=== PATIENT | male | born 1950 | race Caucasian/White ===

== ENCOUNTER 2020-11-12 14:16 | Inpatient (IN) | payer OTHER, MEDICARE ==
[2020-11-12] VITALS (9 sets, daily range): BP systolic 91–107; BP diastolic 50–58
[~2020-11-12] VITALS: Ht 188 cm; Wt 58.9 kg
--- NOTE | 2020-11-12 15:18 | PHYS DOC ---
Past Medical History Past Medical History: Cancer, Other Additional Past Medical Histor: "POSSIBLE CANCER" Past Surgical History: Cholecystectomy, Other Additional Past Surgical Histo: MULTIPLE ABDOMINAL SURGERIES Smoking Status: Never Smoker Alcohol Use: Occasionally Additional Information: BEER, 1 TO 2 A WEEK General Adult EDM: Chief Complaint: WEAKNESS HPI: HPI: Patient is a 70 year old male who was sent down here from the oncology clinic due to dehydration anemia and elevated white blood cell count. Patient is being worked up for some form of liver cancer, he had lost 20 pounds in 4 weeks. Patient was seen by the physician legal executive assistant in the cancer clinic today, blood work was done showed that his hemoglobin level was really low and his white blood cell count was really high therefore he was sent out here for evaluation. Patient denies any rectal bleeding, denies any dark stool. Patient denies any cough or fever. Patient did feel weak and getting tired easily. He is complaining of trouble breathing when he exerts himself. Review of Systems: Review of Systems: Constitutional: Denies fever or chills. [] Eyes: Denies change in visual acuity. [] HENT: Denies nasal congestion or sore throat. [] Respiratory: Denies cough , positive for shortness of breath. [] Cardiovascular: Denies chest pain or edema. [] GI: Denies abdominal pain, nausea, vomiting, bloody stools or diarrhea. [] : Denies dysuria. [] Musculoskeletal: Denies back pain or joint pain. [] Integument: Denies rash. [] Neurologic: Denies headache, focal weakness or sensory changes. Positive for generalized weakness. Endocrine: Denies polyuria or polydipsia. [] Lymphatic: Denies swollen glands. [] Psychiatric: Denies depression or anxiety. [] Heart Score: Risk Factors: Risk Factors: DM, Current or recent (<one month) smoker, HTN, HLP, family history of CAD, obesity. Risk Scores: Score 0 - 3: 2.5% MACE over next 6 weeks - Discharge Home Score 4 - 6: 20.3% MACE over next 6 weeks - Admit for Clinical Observation Score 7 - 10: 72.7% MACE over next 6 weeks - Early Invasive Strategies Current Medications: Current Medications Medications (Trade) Dose Ordered Sig/Ric Start Time Stop Time Status Last Admin Dose Admin Piperacillin Sod/ Tazobactam Sod 3.375 gm/Sodium Chloride 50 ml @ 100 mls/hr 1X ONCE 11/12/20 15:30 11/12/20 15:59 Allergies: Allergies: Allergies Coded Allergies Type Severity Reaction Last Updated Verified No Known Drug Allergies 11/12/20 No Physical Exam: PE: Constitutional: Well developed, well nourished, no acute distress, very cachectic. HENT: Normocephalic, atraumatic, bilateral external ears normal, oropharynx moist, no oral exudates, nose normal. [] Eyes: PERRLA, EOMI, conjunctiva is pale, no discharge. [] Neck: Normal range of motion, no tenderness, supple, no stridor. [] Cardiovascular:Heart rate regular rhythm, no murmur [] Lungs & Thorax: Bilateral breath sounds clear to auscultation [] Abdomen: Bowel sounds normal, soft, no tenderness, no masses, no pulsatile masses. [] Skin: Warm, dry, no erythema, no rash. [] Back: No tenderness, no CVA tenderness. [] Extremities: No tenderness, no cyanosis, no clubbing, ROM intact, no edema. [] Neurologic: Alert and oriented X 3, normal motor function, normal sensory function, no focal deficits noted. [] Psychologic: Affect normal, judgement normal, mood normal. [] Current Patient Data: Labs: Laboratory Tests Test 11/12/20 17:00 White Blood Count 27.0 x10^3/uL Red Blood Count 2.44 x10^6/uL Hemoglobin 5.7 g/dL Hematocrit 18.0 % Mean Corpuscular Volume 74 fL Mean Corpuscular Hemoglobin 23 pg Mean Corpuscular Hemoglobin Concent 32 g/dL Red Cell Distribution Width 20.5 % Platelet Count 329 x10^3/uL Sodium Level 124 mmol/L Potassium Level 3.2 mmol/L Chloride Level 92 mmol/L Carbon Dioxide Level 19 mmol/L Anion Gap 13 Blood Urea Nitrogen 59 mg/dL Creatinine 1.1 mg/dL Estimated GFR (Cockcroft-Gault) 66.0 Glucose Level 113 mg/dL Lactic Acid Level 1.1 mmol/L Calcium Level 7.7 mg/dL Troponin I Quantitative < 0.017 ng/mL Procalcitonin 11.90 ng/mL Current Medications Medications (Trade) Dose Ordered Sig/Ric Route PRN Reason Start Time Stop Time Status Last Admin Dose Admin Piperacillin Sod/ Tazobactam Sod 3.375 gm/Sodium Chloride 50 ml @ 100 mls/hr 1X ONCE IV 11/12/20 15:30 11/12/20 15:59 DC 11/12/20 15:24 Vital Signs: Vital Signs Date Time Temp Pulse Resp B/P (MAP) Pulse Ox O2 Delivery O2 Flow Rate FiO2 11/12/20 14:33 97.9 104 24 108/65 (79) 100 Room Air 97.9 EKG: EKG: [] Radiology/Procedures: Radiology/Procedures: [facility] [address] [place] [address] IMAGING REPORT Signed PATIENT: MISTY BETHOUNT: [id number] : 1950 LOCATION: ER AGE: 70 SEX: M EXAM STATUS: REG ER ORD. PHYSICIAN: JULI GIANG DO REASON: SOA, PROCEDURE: CHEST AP ONLY EXAM: CHEST 1 VIEW History: Shortness of breath COMPARISON: None available. TECHNIQUE: Single portable radiograph of the chest FINDINGS: The cardiac silhouette is unremarkable. Right-sided Port-A-Cath is identified. Mild prominent bilateral interstitial lung markings could be chronic interstitial changes. IMPRESSION: 1. Mild prominent bilateral interstitial lung markings could be chronic interstitial changes. Electronically signed by: Chele Floyd MD (11/12/2020 4:05 PM) [id number] DICTATED and SIGNED BY: CHELE FLOYD MD DATE: 11/12/20 [id number] 0 Course & Med Decision Making: Course & Med Decision Making Pertinent Labs and Imaging studies reviewed. (See chart for details) [] Dragon Disclaimer: Dragon Disclaimer: This electronic medical record was generated, in whole or in part, using a voice recognition dictation system. Departure Departure Impression: Primary Impression: Anemia Additional Impressions: Liver cancer Dehydration Leukocytosis Disposition: 09 ADMITTED INPT THIS HOSP Admitting Physician: ANTONINO Condition: STABLE Referrals: DIMA COLLIER MD (PCP) JULI GIANG DO Nov 12, 2020 15:17
[2020-11-12] MEDS ORDERED: PIPERACILLIN/TAZOBACTAM 3.375 GM in IV NORMAL SALINE 50ML 50 ML IV ONE (15:30)
--- NOTE | 2020-11-12 15:47 | PDOC1 ---
History and Physical Date of Admission Date of Admission DATE: 11/12/20 TIME: 15:46 Identification/Chief Complaint Chief Complaint weakness, severe anemia, 20lb weight loss IN 2 WEEKS, ANOREXIA History of Present Illness History of Present Illness Mr Castorena is a 70 yr old male with a history of hepatic cancer who has been followed by DR GARCIA, ONCOLOGY at [facility] Until recently. 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 [facility] records from are pending Past Medical History Past Medical History Past Medical History Past Medical History Past Medical History: Cancer, Other Additional Past Medical Histor: "POSSIBLE CANCER" Past Surgical History: Cholecystectomy, Other Additional Past Surgical Histo: MULTIPLE ABDOMINAL SURGERIES Smoking Status: Never Smoker Alcohol Use: Occasionally Additional Information: BEER, 1 TO 2 A WEEK FHX HTN Heme/Onc: Cancer Hepatobiliary: Cirrhosis Social History Smoke: No ALCOHOL: other (remote heavy use 6 pack a day until 2019) Current Problem List Problem List Problems Medical Problems: (1) Anemia Status: Acute (2) Dehydration Status: Acute (3) Leukocytosis Status: Acute (4) Liver cancer Status: Acute Current Medications Current Medications Current Medications Piperacillin Sod/ Tazobactam Sod 3.375 gm/Sodium Chloride 50 ml @ 100 mls/hr 1X ONCE IV Last administered on 11/12/20at 15:24; Start 11/12/20 at 15:30; Stop 11/12/20 at 15:59 Allergies Allergies: Coded Allergies: No Known Drug Allergies (Unverified , 11/12/20) ROS Review of System has lost 20 lbs in 2 weeks, approx 50 lbs in 1 year General: YES: Fatigue PSYCHOLOGICAL ROS: No: Anxiety, Behavioral Disorder, Concentration difficultie, Decreased libido, Depression, Disorientation, Hallucinations, Hostility, Irritablity, Memory difficulties, Mood Swings, Obsessive thoughts, Physical abuse, Sexual abuse, Sleep disturbances, Suicidal ideation, Other Eyes: No Blurry vision, No Decreased vision, No Double vision, No Dry eyes, No Excessive tearing, No Eye Pain, No Itchy Eyes, No Loss of vision, No Photophobia, No Scotomata, No Uses contacts, No Uses glasses, No Other Hematological and Lymphatic: No: Bleeding Problems, Blood Clots, Blood Transfusions, Brusing, Night Sweats, Pallor, Swollen Lymph Nodes, Other ENDOCRINE: No: Breast Changes, Galactorrhea, Hair Pattern Changes, Hot Flashes, Malaise/lethargy, Mood Swings, Palpitations, Polydipsia/polyuria, Skin Changes, Temperature Intolerance, Unexpected Weight Changes, Other Respiratory: No: Cough, Hemoptysis, Orthopnea, Pleuritic Pain, Shortness of breath, SOB with excertion, Sputum Changes, Stridor, Tachypnea, Wheezing, Other Cardiovascular: No Chest Pain, No Palpitations, No Orthopnea, No Paroxysmal Noc. Dyspnea, No Edema, No Lt Headedness, No Other Gastrointestinal: Yes Other (marked weight loss, poor appetite); No Nausea, No Vomiting, No Abdominal Pain, No Diarrhea, No Constipation, No Melena, No Hematochezia Genitourinary: No Dysuria, No Frequency, No Incontinence, No Hematuria, No Retention, No Discharge, No Urgency, No Pain, No Flank Pain, No Other, No , No , No , No , No , No , No Musculoskeletal: No Gait Disturbance, No Joint Pain, No Joint Stiffness, No Joint Swelling, No Muscle Pain, No Muscular Weakness, No Pain In:, No Swelling In:, No Other Neurological: No Behavorial Changes, No Bowel/Bladder ControlChng, No Confusion, No Dizziness, No Gait Disturbance, No Headaches, No Impaired Coord/balance, No Memory Loss, No Numbness/Tingling, No Seizures, No Speech Problems, No Tremors, No Visual Changes, No Weakness, No Other Skin: No Dry Skin, No Eczema, No Hair Changes, No Lumps, No Mole Changes, No Mottling, No Nail Changes, No Pruritus, No Rash, No Skin Lesion Changes, No Other, No Acne Physical Exam Physical Exam very thin, alert appears malnourished, port in place Eyes: PERRLA, EOMI, conjunctiva normal, no discharge. [] Neck: Normal range of motion, no tenderness, supple, no stridor. [] Cardiovascular:Heart rate regular rhythm, no murmur [] Lungs & Thorax: Bilateral breath sounds clear to auscultation [] Abdomen: Bowel sounds normal, soft, no tenderness, no masses, no pulsatile masses. [] Skin: Warm, dry, no erythema, no rash. [] Back: No tenderness, no CVA tenderness. [] Extremities: No tenderness, no cyanosis, no clubbing, ROM intact, no edema. [] Neurologic: Alert and oriented X 3, normal motor function, normal sensory function, no focal deficits noted. [] Psychologic: Affect normal, judgment normal, mood normal. [] General: Alert, Oriented X3, Cooperative, No acute distress HEENT: Atraumatic, EOMI, Mucous membr. moist/pink Lungs: Normal air movement Heart: RRR, no thrills Abdomen: Soft, Other (thin) Rectal Exam: not examined PELVIC: Examination not indicated Extremities: No clubbing, No cyanosis Neuro: Normal speech, Cranial nerves 3-12 NL Psych/Mental Status: Mental status NL, Mood NL Vitals Vitals Vital Signs Date Time Temp Pulse Resp B/P (MAP) Pulse Ox O2 Delivery O2 Flow Rate FiO2 11/12/20 14:33 97.9 104 24 108/65 (79) 100 Room Air 97.9 Images Images EXAM: CHEST 1 VIEW History: Shortness of breath COMPARISON: None available. TECHNIQUE: Single portable radiograph of the chest FINDINGS: The cardiac silhouette is unremarkable. Right-sided Port-A-Cath is identified. Mild prominent bilateral interstitial lung markings could be chronic interstitial changes. IMPRESSION: 1. Mild prominent bilateral interstitial lung markings could be chronic interstitial changes. Electronically signed by: Chele Floyd MD (11/12/2020 4:05 PM) [id number] DICTATED and SIGNED BY: CHELE FLOYD MD DATE: 11/12/20 [id number] VTE Prophylaxis Ordered VTE Prophylaxis Devices: Yes VTE Pharmacological Prophylaxi: Yes Assessment/Plan Assessment/Plan impression 1. Acute profound anemia, possible GI BLEEDING 2. severe hyponatremia, volume depleted 3. hx Hepatic cancer, type unknown 4. Mild prominent bilateral interstitial lung markings c/w chronic interstitial changes. 5. metabolic acidosis 6. NAEL, VASOMOTOR NEPHROPATHY, acute 7. HYPERGLYCEMIA 8. sepsis 9. LEUKOCYTOSIS 10. SEVERE PROTEIN-CALORIC MALNUTRITION plan admit transfuse, hgb 2300 tonight, BMP AT 2300 TONIGHT CONSULT ONCOLOGY Consult nephrology cvc bed CONSULT GI IV FLUID SUPPORT Serum osmolality urine osmolality dvt prophylaxis iv protonix 40 mg q 24 hrs blood cultures Consult ID emperic iv zosyn, pending ID CONSULT PROCALCITONIN LACTIC ACID WITH REFLEX NORMAL SALINE WITH ONE AMP NAHCO3/LITER AT 125 CC/HR PENDING nephrology consult GUIAC STOOLS need [facility] RECORDS TONNY 76 MIN pt exam, chart review, > 50% of time spent with exam, chart review, pt care coordination Justifications for Admission Other Justification VALDO JOHANSEN MD Nov 12, 2020 15:47
[2020-11-12] MEDS ORDERED: ONDANSETRON PF 4 MG/2 ML VIAL. IV PRN ×2 (16:00→17:15)
[2020-11-12] MEDS ORDERED: PIP/TAZO PER PHARMACY MC PRN (16:00)
--- NOTE | 2020-11-12 16:08 | RAD ---
EXAM: CHEST 1 VIEW History: Shortness of breath COMPARISON: None available. TECHNIQUE: Single portable radiograph of the chest FINDINGS: The cardiac silhouette is unremarkable. Right-sided Port-A-Cath is identified. Mild promin ent bilateral interstitial lung markings could be chronic interstitial changes. IMPRESSION: 1. Mild prominent bilateral interstitial lung markings could be chronic interstitial changes. Electronically signed by: Chele Floyd MD (11/12/2020 4:05 PM) [id number]
[2020-11-12] MEDS: IV NORMAL SALINE 1000ML BAG 1,000 ML IV SCH (16:38)
[2020-11-12] MEDS ORDERED: PANTOPRAZOLE IV PUSH 40 MG VIAL. IVP SCH (17:00)
[2020-11-12] MEDS ORDERED: 0.9 % SODIUM CHLORIDE 10 ML DISP.SYRIN. IV PRN (17:15)
[2020-11-12] MEDS ORDERED: DOCUSATE SODIUM 100 MG CAPSULE. PO PRN (17:15)
[2020-11-12] MEDS ORDERED: ACETAMINOPHEN 325 MG TABLET. PO PRN (17:15)
[2020-11-12] MEDS ORDERED: guaiFENesin ORAL 200 MG/10 ML LIQUID. PO PRN (17:15)
[2020-11-12] MEDS ORDERED: LORazepam 0.5 MG TABLET PO PRN (17:15)
[2020-11-12] MEDS ORDERED: ALBUTEROL SULFATE 2.5 MG/3 ML NEBU. NEB PRN (17:15)
[2020-11-12 17:30] LABS: RED BLOOD COUNT 2.44 x10^6/uL (4.30-5.70); RED CELL DISTRIBUTION WIDTH 20.5 % (11.5-14.5)
[2020-11-12 17:38] LABS: HEMOGLOBIN 5.7 g/dL (13.0-17.5)
[2020-11-12 17:45] LABS: CALCIUM 7.7 mg/dL (8.5-10.1); CREATININE 1.1 mg/dL (0.7-1.3); POTASSIUM 3.2 mmol/L (3.5-5.1)
[2020-11-12] MEDS ORDERED: PIPERACILLIN/TAZOBACTAM 3.375 GM in IV NORMAL SALINE 50ML 50 ML IV SCH (18:00)
--- NOTE | 2020-11-12 18:27 | RAD ---
US ABDOMEN COMPLETE History: Reason: NAEL; HX OF LIVER CANCER, ELEVATED LFTS / Spl. Instructions: / History: Comparison: None. Technique: Sonographic examination of the abdomen was performed and multiple grayscale and color Dopp ler static images were obtained. Findings: Liver demonstrates heterogeneous echogenicity. The liver measures 17.7 cm. Portal flow is patent. Sep tated cystic lesion within the right hepatic lobe poorly characterized due to technique. Prior cholecystectomy. Common bile duct not identified due to overlying structures. Visualized pancreas not well seen due to overlying bowel gas. The right kidney measures 11.5 x 6.1 x 4.3 cm. No hydronephrosis. Right renal cyst measures 4.0 cm. N o follow-up imaging is recommended per consensus recommendations based on imaging criteria. The left kidney measures 10.9 x 5.0 x 6.0 cm. No hydronephrosis. The spleen measures 10.8 cm. Not well seen due to overlying structures. Visualized portions of the abdominal aorta and IVC are normal. IMPRESSION: 1. Degraded evaluation. 2. Heterogeneous appearance of liver with complex cystic lesion. Recommend comparison with prior [place] ging studies. MRI can further evaluate given history of malignancy. Electronically signed by: Mike Mccullough DO (11/12/2020 6:24 PM) [facility]
[2020-11-12] MEDS: SODIUM BICARBONATE VIAL 50 MEQ in IV NORMAL SALINE 1000ML BAG 1,000 ML IV SCH (18:31)
--- NOTE | 2020-11-12 22:30 | NUR ---
The patient, MISTY BETH, 70 y/o, M admitted by VALDO JOHANSEN MD, was given written information regarding hospital policies, unit procedures and contact persons. Assessment complete, VS stable. Patient reports no pain at this time and is resting comfortably on RA. Patient states that he does not take any medications at home and states that he has never gotten a flu shot and does not want one. Valuables were checked and left with patient. Bed in low locked position, call light in reach, reminded patient to call for assistance before ambulating. Will continue to monitor.
[2020-11-12] MEDS: ENOXAPARIN 40 MG/0.4 ML SYRINGE. SQ SCH (23:43)
[2020-11-12] MEDS: PIPERACILLIN/TAZOBACTAM 3.375 GM in IV NORMAL SALINE 50ML 50 ML IV SCH (23:44)
[2020-11-13] VITALS (10 sets, daily range): BP systolic 90–105; BP diastolic 51–59
[2020-11-13 00:28] LABS: RED BLOOD COUNT 2.59 x10^6/uL (4.30-5.70); RED CELL DISTRIBUTION WIDTH 19.6 % (11.5-14.5); WHITE BLOOD COUNT 15.6 x10^3/uL (4.0-11.0)
[2020-11-13 00:30] LABS: CALCIUM 7.7 mg/dL (8.5-10.1); GFR 73.7
[2020-11-13 00:33] LABS: HEMATOCRIT 19.7 % (39.0-53.0); HEMOGLOBIN 6.2 g/dL (13.0-17.5)
[2020-11-13 00:34] LABS: POTASSIUM 2.9 mmol/L (3.5-5.1)
[2020-11-13] MEDS: POTASSIUM CHLORIDE 10MEQ 100 ML IV SCH ×3 (01:04→03:02)
[2020-11-13] MEDS: PIPERACILLIN/TAZOBACTAM 3.375 GM in IV NORMAL SALINE 50ML 50 ML IV SCH ×3 (05:56→17:55)
[2020-11-13] MEDS: SODIUM BICARBONATE VIAL 50 MEQ in IV NORMAL SALINE 1000ML BAG 1,000 ML IV SCH (06:09)
[2020-11-13 08:27] LABS: BASO % 0 % (0-3); EOS % 0 % (0-3); HEMATOCRIT 22.4 % (39.0-53.0); HEMOGLOBIN 7.3 g/dL (13.0-17.5); LYMPH # 0.7 x10^3/uL (1.0-4.8); LYMPH % 7 % (24-48); MEAN CORPUSCULAR HEMOGLOBIN 25 pg (25-35); MEAN CORPUSCULAR HGB CONC 32 g/dL (31-37); MEAN CORPUSCULAR VOLUME 77 fL (79-100); MONO % 9 % (0-9); NEUT % 84 % (31-73); PLATELET COUNT 267 x10^3/uL (140-400); RED BLOOD COUNT 2.91 x10^6/uL (4.30-5.70); RED CELL DISTRIBUTION WIDTH 18.9 % (11.5-14.5); WHITE BLOOD COUNT 10.7 x10^3/uL (4.0-11.0)
[2020-11-13 08:35] LABS: CALCIUM 7.7 mg/dL (8.5-10.1); CREATININE 0.7 mg/dL (0.7-1.3); GFR 111.2; POTASSIUM 3.6 mmol/L (3.5-5.1)
[2020-11-13 08:42] LABS: ALBUMIN 1.7 g/dL (3.4-5.0); ALBUMIN/GLOBULIN RATIO 0.4 (1.0-1.7); TOTAL BILIRUBIN 1.3 mg/dL (0.2-1.0); TOTAL PROTEIN 5.7 g/dL (6.4-8.2)
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
--- NOTE | 2020-11-13 10:22 | PDOC ---
[employer] PROGRESS NOTE Date of Service DOS: DATE: 11/13/20 TIME: 10:19 Chief Complaint Chief Complaint 11/13/2020 -Possible Liver neoplasm -Anemia History of Present Illness History of Present Illness 11/13/2020 -Patient seen and examined -RANI RN -Chart reviewed Vitals/I&O Vitals/I&O: Vital Signs Date Time Temp Pulse Resp B/P (MAP) Pulse Ox O2 Delivery O2 Flow Rate FiO2 11/13/20 07:00 97.7 58 18 90/58 (69) 94 Room Air 97.7 I & O 11/12/20 11/12/20 11/13/20 15:00 23:00 07:00 Intake Total 550 ml 450 ml Output Total 325 ml Balance 550 ml 125 ml Physical Exam General: Alert, Oriented X3, Cooperative, No acute distress Heart: Regular rate, No murmurs Lungs: Clear Abdomen: Normal bowel sounds, Soft, Other (thin) Extremities: No clubbing, No cyanosis Skin: No breakdown, No significant lesion Labs Labs: Laboratory Tests Test 11/12/20 17:00 11/13/20 00:05 11/13/20 08:00 White Blood Count 27.0 x10^3/uL (4.0-11.0) 15.6 x10^3/uL (4.0-11.0) 10.7 x10^3/uL (4.0-11.0) Red Blood Count 2.44 x10^6/uL (4.30-5.70) 2.59 x10^6/uL (4.30-5.70) 2.91 x10^6/uL (4.30-5.70) Hemoglobin 5.7 g/dL (13.0-17.5) 6.2 g/dL (13.0-17.5) 7.3 g/dL (13.0-17.5) Hematocrit 18.0 % (39.0-53.0) 19.7 % (39.0-53.0) 22.4 % (39.0-53.0) Mean Corpuscular Volume 74 fL (79-100) 76 fL (79-100) 77 fL (79-100) Mean Corpuscular Hemoglobin 23 pg (25-35) 24 pg (25-35) 25 pg (25-35) Mean Corpuscular Hemoglobin Concent 32 g/dL (31-37) 31 g/dL (31-37) 32 g/dL (31-37) Red Cell Distribution Width 20.5 % (11.5-14.5) 19.6 % (11.5-14.5) 18.9 % (11.5-14.5) Platelet Count 329 x10^3/uL (140-400) 268 x10^3/uL (140-400) 267 x10^3/uL (140-400) Sodium Level 124 mmol/L (136-145) 126 mmol/L (136-145) 130 mmol/L (136-145) Potassium Level 3.2 mmol/L (3.5-5.1) 2.9 mmol/L (3.5-5.1) 3.6 mmol/L (3.5-5.1) Chloride Level 92 mmol/L (98-107) 97 mmol/L (98-107) 100 mmol/L (98-107) Carbon Dioxide Level 19 mmol/L (21-32) 21 mmol/L (21-32) 23 mmol/L (21-32) Anion Gap 13 (6-14) 8 (6-14) 7 (6-14) Blood Urea Nitrogen 59 mg/dL (8-26) 42 mg/dL (8-26) 31 mg/dL (8-26) Creatinine 1.1 mg/dL (0.7-1.3) 1.0 mg/dL (0.7-1.3) 0.7 mg/dL (0.7-1.3) Estimated GFR (Cockcroft-Gault) 66.0 73.7 111.2 Glucose Level 113 mg/dL (70-99) 115 mg/dL (70-99) 92 mg/dL (70-99) Lactic Acid Level 1.1 mmol/L (0.4-2.0) Calcium Level 7.7 mg/dL (8.5-10.1) 7.7 mg/dL (8.5-10.1) 7.7 mg/dL (8.5-10.1) Troponin I Quantitative < 0.017 ng/mL (0.000-0.055) Procalcitonin 11.90 ng/mL (0.00-0.10) Neutrophils (%) (Auto) 84 % (31-73) Lymphocytes (%) (Auto) 7 % (24-48) Monocytes (%) (Auto) 9 % (0-9) Eosinophils (%) (Auto) 0 % (0-3) Basophils (%) (Auto) 0 % (0-3) Neutrophils # (Auto) 9.0 x10^3/uL (1.8-7.7) Lymphocytes # (Auto) 0.7 x10^3/uL (1.0-4.8) Monocytes # (Auto) 1.0 x10^3/uL (0.0-1.1) Eosinophils # (Auto) 0.0 x10^3/uL (0.0-0.7) Basophils # (Auto) 0.0 x10^3/uL (0.0-0.2) BUN/Creatinine Ratio 44 (6-20) Total Bilirubin 1.3 mg/dL (0.2-1.0) Aspartate Amino Transf (AST/SGOT) 34 U/L (15-37) Alanine Aminotransferase (ALT/SGPT) 20 U/L (16-63) Alkaline Phosphatase 100 U/L (46-116) Total Protein 5.7 g/dL (6.4-8.2) Albumin 1.7 g/dL (3.4-5.0) Albumin/Globulin Ratio 0.4 (1.0-1.7) Review of Systems Review of Systems: 11/13/2020 -Pectus excavatum, denies N/V Assessment and Plan Assessmemt and Plan Problems Medical Problems: (1) Anemia Status: Acute (2) Dehydration Status: Acute (3) Leukocytosis Status: Acute (4) Liver cancer Status: Acute 11/13/2020 A: -Anemia -Liver lesion, questionable neoplasm P: -Appreciate oncology sub-specialist input -Cardiac monitoring -Trend hgb -DVT prophylaxis -Home meds -Full code Comment Review of Relevant I have reviewed the following items trini (where applicable) has been applied. Medications: Current Medications Medications (Trade) Dose Ordered Sig/Ric Route PRN Reason Start Time Stop Time Status Last Admin Dose Admin Piperacillin Sod/ Tazobactam Sod 3.375 gm/Sodium Chloride 50 ml @ 100 mls/hr 1X ONCE IV 11/12/20 15:30 11/12/20 15:59 DC 11/12/20 15:24 Sodium Chloride 1,000 ml @ 75 mls/hr [id number] IV 11/12/20 16:00 11/13/20 15:59 11/12/20 16:38 Piperacillin Sod/ Tazobactam Sod 3.375 gm/Sodium Chloride 50 ml @ 100 mls/hr Q6HRS IV 11/13/20 00:00 11/13/20 05:56 Pantoprazole Sodium (PROTONIX VIAL for IV PUSH) 40 mg DAILYAC IVP 11/12/20 17:00 11/12/20 17:48 Sodium Bicarbonate 50 meq/Sodium Chloride 1,050 ml @ 125 mls/hr Q8H24M IV 11/12/20 18:00 11/13/20 10:47 11/13/20 06:09 Enoxaparin Sodium (Lovenox 40mg Syringe) 40 mg Q24H SQ 11/12/20 21:00 11/12/20 23:43 Potassium Chloride/Water 100 ml @ 100 mls/hr Q1H IV 11/13/20 01:00 11/13/20 03:59 DC 11/13/20 03:02 Justifications for Admission General Conditions Poss tachycardia?: Yes Justification for admission: Patient has tachycardia (> 100 beats per minute) which is not readily corrected by appropriate treatment within 12 to 24 hours. SEPSIS, PROFOUND ANEMIA, GI BLEED Other Justification EHSAN GARCIA III DO Nov 13, 2020 10:22
[2020-11-13] MEDS: PANTOPRAZOLE 40 MG TABLET.DR. PO SCH (11:07)
--- NOTE | 2020-11-13 12:23 | CONS ---
DATE OF CONSULTATION: 11/12/2020 REFERRING PHYSICIAN: Dr. Cheung. REASON FOR CONSULTATION: Sepsis. HISTORY OF PRESENT ILLNESS: A 70-year-old male with a liver/biliary cancer extensively worked up at [facility], recently transferred his care to [facility] here. The patient underwent Port-A-Cath placement about a month ago, but then he felt it would be a bad idea to start chemo during the flu season. The patient was sent for outpatient lab yesterday, which showed severe anemia, hyponatremia and NAEL along with leukocytosis. He was told to come to the ER for transfusion and admission. Blood culture from 11/12/2020 from [facility] [place] grew GPC strep like organism. The patient was started on Zosyn. Today patient denies any fevers, chills, nausea, vomiting, diarrhea, abdominal pain. Does have poor teeth. He is awaiting dental workup for the same. The patient has undergone Multiple duodenal biopsies about 12-14 for workup of liver mass in the past. He had a postoperative fungal infection for which he underwent local I&D . He then self treated it with essential oils and salves, which healed it well. The patient has a 20-pound weight loss in the last 4 weeks with decreased appetite. WBC on 11/12/2020 was 27,000, hemoglobin of 5.7, platelets of 326, repeat was 15.6, hemoglobin of 6.2. This morning, his white count is down to 10.7, hemoglobin of 7.3 and platelets of 267. He received 3 packed unit RBC transfusion. The patient also had sodium at 124, potassium was 3.2, went down to 2.9, bicarbonate of 19. Lactate was 1.1. Troponin was normal. Procalcitonin was 11.90, albumin of 1.7, total bilirubin of 1.3. Chest x-ray showed mild prominent bilateral interstitial lung markings, which could be chronic interstitial changes. Ultrasound of the liver showed a heterogeneous appearance of the liver with complex cystic lesion. ID consultation has been requested for antibiotic management. PAST MEDICAL AND SURGICAL HISTORY: Liver/ biliary cancer, status post surgeries, embolization, exploratory laparotomy, cholecystectomy, multiple duodenal and liver biopsies. Port-A-Cath placement, left wrist and right forearm fracture as a child. FAMILY HISTORY: As per HPI. SOCIAL HISTORY: No smoking. Alcohol heavy in the past up to 6-8 beers a day now has cut back to 6 beers a week. 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 . Has one child who is 14 years old. Has a daughter who is 35 years old, also has a grandchild 9 months old. CURRENT MEDICATIONS: Zosyn, pantoprazole, enoxaparin, lorazepam, guaifenesin, albuterol, docusate, acetaminophen, and Zofran. ALLERGIES: No known drug allergies. REVIEW OF SYSTEMS: Negative except for above in HPI. PHYSICAL EXAMINATION: VITAL SIGNS: Temperature 97.7, pulse 58, respiratory rate 18, blood pressure 90/58, oxygen saturation 94% on room air. GENERAL: Alert, oriented, thin, malnourished male in no acute distress. HEENT: Normocephalic, atraumatic. Poor dentition. No thrush. NECK: Supple, no JVD, no lymphadenopathy. LUNGS: Clear bilaterally. No wheezing. HEART: S1, S2. No gallops or murmurs. ABDOMEN: Soft. Mass felt in the epigastric and right upper quadrant. No pulsatile mass noted. Bowel sounds present. No guarding, no rigidity. Chest wall Port-A-Cath site, right chest wall, looks clean. EXTREMITIES: No edema, no cyanosis. DERMATOLOGIC: Warm and dry. No generalized rash. NEUROLOGIC: Alert and oriented x 3, grossly nonfocal. PSYCHIATRIC: Cooperative, appropriate mood and affect. LABORATORY DATA:\ On admission WBC 27, hemoglobin 7.3, was 5.7, hematocrit 22.4, platelets 267. Sodium 130, potassium 3.6, chloride 100, bicarbonate 23, BUN 31, creatinine 0.7, glucose 92, total bilirubin 1.3, albumin 1.7. MICROBIOLOGY: On 11/12/2020, 2/2 bottles Gram-positive cocci in chains suggestive of strep. IMAGING: Chest x-ray as above. Ultrasound of the abdomen as above. IMPRESSION: 1. Sepsis. 2. Gram-positive cocci bacteremia, source appears GI. 3. Severe anemia, status post 3 units of packed RBC. 4. Leukocytosis, likely reactive. Improved 5. Hyponatremia and hypokalemia. 6. History of biliary neoplasm with extensive workup and surgery at and [facility]. 7. Port-A-Cath placement, right chest wall. Site appears clean 8. Weight loss of 20 pounds in the last 4 weeks. 9. Protein-calorie malnutrition. RECOMMENDATIONS: 1. Continue Zosyn. 2. Start daptomycin, pending final ID and JOSE of GPC in blood cultures. 3. Repeat blood cultures from Port-A-Cath and periphery. 4. Monitor labs 5. Continue supportive care. Discussed with nursing staff Thank you for allowing me to participate in this patient's care. If you have any questions, do not hesitate to contact me. DEANNA LYNCH MD DR: MONY/angelo JOB#: [id number] / [id number] CRISTY
--- NOTE | 2020-11-13 12:48 | PDOC2 ---
CONSULT Date of Consult Date of Consult DATE: 11/13/20 TIME: 12:39 Reason for Consult Reason for Consult: LOW NA Referring Physician Referring Physician: ELENO Identification/Chief Complaint Chief Complaint ABNORMAL LABS Source Source: Chart review, Patient History of Present Illness Reason for Visit: THIS IS A 70 YR OLD WITH HX OF BILIARY CANCER. [facility] SE[facility] AT [facility] AND NOW SEEING ONC HERE. OUTPT LABS SHOWED SEVERE ANEMIA AND LOW NA AND PT WAS ADMITTED. PRBC BEING GIVEN NOW. NA OF 124 AND K OF 2.8. ALSO NOTED TO HAVE HIGH WBC AND CURRENTLY FELT TO HAVE SEPSIS. HAS A RIGHT CHEST WALL PORT. IS BEING SEEN BY ID NOW. HAS LIVER MASSES. PER PT HE HAS HAD AMEBIASIS AND HAS HAD INTERMITTENT DIARRHEA WELL. HE HAS NOT RECEIVED ANY CHEMOTHERAPY HE IS CONCERNED ABOUT HIS IMMUNE SYSTEM DURING THIS PANDEMIC. Past Medical History Heme/Onc: Cancer Hepatobiliary: Cirrhosis Social History No ALCOHOL: other (heavy in the past, now abotu 6 beers a week - usually a beer a day - most 2-3 daily) Current Problem List Problem List Problems Medical Problems: (1) Anemia Status: Acute (2) Dehydration Status: Acute (3) Leukocytosis Status: Acute (4) Liver cancer Status: Acute Current Medications Current Medications Current Medications Piperacillin Sod/ Tazobactam Sod 3.375 gm/Sodium Chloride 50 ml @ 100 mls/hr 1X ONCE IV Last administered on 11/12/20at 15:24; Start 11/12/20 at 15:30; Stop 11/12/20 at 15:59; Status DC Ondansetron HCl (Zofran) 4 mg PRN Q8HRS PRN IV NAUSEA/VOMITING; Start 11/12/20 at 16:00; Stop 11/13/20 at 15:59 Sodium Chloride 1,000 ml @ 75 mls/hr [id number] IV Last administered on 11/12/20at 16:38; Start 11/12/20 at 16:00; Stop 11/13/20 at 15:59 Piperacillin Sod/ Tazobactam Sod (Zosyn Per Pharmacy) 1 each PRN DAILY PRN MC SEE COMMENTS; Start 11/12/20 at 16:00 Piperacillin Sod/ Tazobactam Sod 3.375 gm/Sodium Chloride 50 ml @ 100 mls/hr Q6HRS IV Last administered on 11/13/20at 11:38; Start 11/13/20 at 00:00 Pantoprazole Sodium (PROTONIX VIAL for IV PUSH) 40 mg DAILYAC IVP Last administered on 11/12/20at 17:48; Start 11/12/20 at 17:00; Stop 11/13/20 at 10:43; Status DC Sodium Bicarbonate 50 meq/Sodium Chloride 1,050 ml @ 125 mls/hr Q8H24M IV Last administered on 11/13/20at 06:09; Start 11/12/20 at 18:00; Stop 11/13/20 at 10:47; Status DC Sodium Chloride (Normal Saline Flush) 3 ml QSHIFT PRN IV AFTER MEDS AND BLOOD DRAWS; Start 11/12/20 at 17:15 Ondansetron HCl (Zofran) 4 mg PRN Q4HRS PRN IV NAUSEA/VOMITING; Start 11/12/20 at 17:15 Acetaminophen (Tylenol) 650 mg PRN Q4HRS PRN PO TEMP OVER 100.4F OR MILD PAIN; Start 11/12/20 at 17:15 Docusate Sodium (Colace) 100 mg PRN BID PRN PO HARD STOOLS; Start 11/12/20 at 17:15 Albuterol Sulfate (Ventolin Neb Soln) 2.5 mg PRN Q4HRS PRN NEB SHORTNESS OF BREATH; Start 11/12/20 at 17:15 Guaifenesin (Robitussin) 200 mg PRN Q4HRS PRN PO COUGH; Start 11/12/20 at 17:15 Lorazepam (Ativan) 0.5 mg PRN Q4HRS PRN PO ANXIETY / AGITATION; Start 11/12/20 at 17:15 Lorazepam (Ativan Inj) 2 mg PRN Q4HRS PRN IV ANXIETY / AGITATION; Start 11/12/20 at 17:15 Enoxaparin Sodium (Lovenox 40mg Syringe) 40 mg Q24H SQ Last administered on 11/12/20at 23:43; Start 11/12/20 at 21:00 Piperacillin Sod/ Tazobactam Sod 3.375 gm/Sodium Chloride 50 ml @ 100 mls/hr Q6HRS IV ; Start 11/12/20 at 18:00; Status UNV Potassium Chloride/Water 100 ml @ 100 mls/hr Q1H IV Last administered on 11/13/20at 03:02; Start 11/13/20 at 01:00; Stop 11/13/20 at 03:59; Status DC Pantoprazole Sodium (Protonix) 40 mg DAILYAC PO Last administered on 11/13/20at 11:07; Start 11/13/20 at 11:30 Daptomycin 340 mg/ Sodium Chloride 50 ml @ 100 mls/hr Q24H IV ; Start 11/13/20 at 12:00 Allergies Allergies: Coded Allergies: No Known Drug Allergies (Unverified , 11/12/20) ROS General: YES: Fatigue, Malaise PSYCHOLOGICAL ROS: YES: Anxiety, Depression Eyes: Yes Decreased vision Gastrointestinal: Yes Diarrhea Genitourinary: YES Other (NOCTURIA) Musculoskeletal: Yes Muscular Weakness Neurological: Yes Weakness Skin: Yes Dry Skin Physical Exam General: Alert, Oriented X3, Cooperative, No acute distress HEENT: Atraumatic Lungs: Clear to auscultation Heart: Regular rate Abdomen: Normal bowel sounds Extremities: No clubbing Skin: No breakdown Neuro: Normal speech Psych/Mental Status: Mood NL MUSCULOSKELETAL: No deformity, No swelling Vitals VITALS Vital Signs Date Time Temp Pulse Resp B/P (MAP) Pulse Ox O2 Delivery O2 Flow Rate FiO2 11/13/20 11:00 98.7 72 18 97/58 (71) 100 Room Air 98.7 Labs Labs Laboratory Tests Test 11/12/20 17:00 11/13/20 00:05 11/13/20 08:00 White Blood Count 27.0 x10^3/uL (4.0-11.0) 15.6 x10^3/uL (4.0-11.0) 10.7 x10^3/uL (4.0-11.0) Red Blood Count 2.44 x10^6/uL (4.30-5.70) 2.59 x10^6/uL (4.30-5.70) 2.91 x10^6/uL (4.30-5.70) Hemoglobin 5.7 g/dL (13.0-17.5) 6.2 g/dL (13.0-17.5) 7.3 g/dL (13.0-17.5) Hematocrit 18.0 % (39.0-53.0) 19.7 % (39.0-53.0) 22.4 % (39.0-53.0) Mean Corpuscular Volume 74 fL (79-100) 76 fL (79-100) 77 fL (79-100) Mean Corpuscular Hemoglobin 23 pg (25-35) 24 pg (25-35) 25 pg (25-35) Mean Corpuscular Hemoglobin Concent 32 g/dL (31-37) 31 g/dL (31-37) 32 g/dL (31-37) Red Cell Distribution Width 20.5 % (11.5-14.5) 19.6 % (11.5-14.5) 18.9 % (11.5-14.5) Platelet Count 329 x10^3/uL (140-400) 268 x10^3/uL (140-400) 267 x10^3/uL (140-400) Sodium Level 124 mmol/L (136-145) 126 mmol/L (136-145) 130 mmol/L (136-145) Potassium Level 3.2 mmol/L (3.5-5.1) 2.9 mmol/L (3.5-5.1) 3.6 mmol/L (3.5-5.1) Chloride Level 92 mmol/L (98-107) 97 mmol/L (98-107) 100 mmol/L (98-107) Carbon Dioxide Level 19 mmol/L (21-32) 21 mmol/L (21-32) 23 mmol/L (21-32) Anion Gap 13 (6-14) 8 (6-14) 7 (6-14) Blood Urea Nitrogen 59 mg/dL (8-26) 42 mg/dL (8-26) 31 mg/dL (8-26) Creatinine 1.1 mg/dL (0.7-1.3) 1.0 mg/dL (0.7-1.3) 0.7 mg/dL (0.7-1.3) Estimated GFR (Cockcroft-Gault) 66.0 73.7 111.2 Glucose Level 113 mg/dL (70-99) 115 mg/dL (70-99) 92 mg/dL (70-99) Lactic Acid Level 1.1 mmol/L (0.4-2.0) Calcium Level 7.7 mg/dL (8.5-10.1) 7.7 mg/dL (8.5-10.1) 7.7 mg/dL (8.5-10.1) Troponin I Quantitative < 0.017 ng/mL (0.000-0.055) Procalcitonin 11.90 ng/mL (0.00-0.10) Neutrophils (%) (Auto) 84 % (31-73) Lymphocytes (%) (Auto) 7 % (24-48) Monocytes (%) (Auto) 9 % (0-9) Eosinophils (%) (Auto) 0 % (0-3) Basophils (%) (Auto) 0 % (0-3) Neutrophils # (Auto) 9.0 x10^3/uL (1.8-7.7) Lymphocytes # (Auto) 0.7 x10^3/uL (1.0-4.8) Monocytes # (Auto) 1.0 x10^3/uL (0.0-1.1) Eosinophils # (Auto) 0.0 x10^3/uL (0.0-0.7) Basophils # (Auto) 0.0 x10^3/uL (0.0-0.2) BUN/Creatinine Ratio 44 (6-20) Total Bilirubin 1.3 mg/dL (0.2-1.0) Aspartate Amino Transf (AST/SGOT) 34 U/L (15-37) Alanine Aminotransferase (ALT/SGPT) 20 U/L (16-63) Alkaline Phosphatase 100 U/L (46-116) Total Protein 5.7 g/dL (6.4-8.2) Albumin 1.7 g/dL (3.4-5.0) Albumin/Globulin Ratio 0.4 (1.0-1.7) Laboratory Tests Test 11/12/20 17:00 11/13/20 00:05 11/13/20 08:00 White Blood Count 27.0 x10^3/uL (4.0-11.0) 15.6 x10^3/uL (4.0-11.0) 10.7 x10^3/uL (4.0-11.0) Red Blood Count 2.44 x10^6/uL (4.30-5.70) 2.59 x10^6/uL (4.30-5.70) 2.91 x10^6/uL (4.30-5.70) Hemoglobin 5.7 g/dL (13.0-17.5) 6.2 g/dL (13.0-17.5) 7.3 g/dL (13.0-17.5) Hematocrit 18.0 % (39.0-53.0) 19.7 % (39.0-53.0) 22.4 % (39.0-53.0) Mean Corpuscular Volume 74 fL (79-100) 76 fL (79-100) 77 fL (79-100) Mean Corpuscular Hemoglobin 23 pg (25-35) 24 pg (25-35) 25 pg (25-35) Mean Corpuscular Hemoglobin Concent 32 g/dL (31-37) 31 g/dL (31-37) 32 g/dL (31-37) Red Cell Distribution Width 20.5 % (11.5-14.5) 19.6 % (11.5-14.5) 18.9 % (11.5-14.5) Platelet Count 329 x10^3/uL (140-400) 268 x10^3/uL (140-400) 267 x10^3/uL (140-400) Sodium Level 124 mmol/L (136-145) 126 mmol/L (136-145) 130 mmol/L (136-145) Potassium Level 3.2 mmol/L (3.5-5.1) 2.9 mmol/L (3.5-5.1) 3.6 mmol/L (3.5-5.1) Chloride Level 92 mmol/L (98-107) 97 mmol/L (98-107) 100 mmol/L (98-107) Carbon Dioxide Level 19 mmol/L (21-32) 21 mmol/L (21-32) 23 mmol/L (21-32) Anion Gap 13 (6-14) 8 (6-14) 7 (6-14) Blood Urea Nitrogen 59 mg/dL (8-26) 42 mg/dL (8-26) 31 mg/dL (8-26) Creatinine 1.1 mg/dL (0.7-1.3) 1.0 mg/dL (0.7-1.3) 0.7 mg/dL (0.7-1.3) Estimated GFR (Cockcroft-Gault) 66.0 73.7 111.2 Glucose Level 113 mg/dL (70-99) 115 mg/dL (70-99) 92 mg/dL (70-99) Lactic Acid Level 1.1 mmol/L (0.4-2.0) Calcium Level 7.7 mg/dL (8.5-10.1) 7.7 mg/dL (8.5-10.1) 7.7 mg/dL (8.5-10.1) Troponin I Quantitative < 0.017 ng/mL (0.000-0.055) Procalcitonin 11.90 ng/mL (0.00-0.10) Neutrophils (%) (Auto) 84 % (31-73) Lymphocytes (%) (Auto) 7 % (24-48) Monocytes (%) (Auto) 9 % (0-9) Eosinophils (%) (Auto) 0 % (0-3) Basophils (%) (Auto) 0 % (0-3) Neutrophils # (Auto) 9.0 x10^3/uL (1.8-7.7) Lymphocytes # (Auto) 0.7 x10^3/uL (1.0-4.8) Monocytes # (Auto) 1.0 x10^3/uL (0.0-1.1) Eosinophils # (Auto) 0.0 x10^3/uL (0.0-0.7) Basophils # (Auto) 0.0 x10^3/uL (0.0-0.2) BUN/Creatinine Ratio 44 (6-20) Total Bilirubin 1.3 mg/dL (0.2-1.0) Aspartate Amino Transf (AST/SGOT) 34 U/L (15-37) Alanine Aminotransferase (ALT/SGPT) 20 U/L (16-63) Alkaline Phosphatase 100 U/L (46-116) Total Protein 5.7 g/dL (6.4-8.2) Albumin 1.7 g/dL (3.4-5.0) Albumin/Globulin Ratio 0.4 (1.0-1.7) Assessment/Plan Assessment/Plan IMP HYPONATREMIA-POSSIBLE SIADH VS HYPOVOLEMIA HYPOKALEMIA SEPSIS LEUCOCYTOSIS BILIARY CANCER LIVER CYST ?AMEBIASIS DIARRHEA PLAN ANTBIOTICS ID EVAL AND TX REPLACE K SALINE CHECK URINE AND SERUM OSMO CHECK URINE LYTES K SUPPLEMENTS ARIANA SOLIS MD Nov 13, 2020 12:48
--- NOTE | 2020-11-13 12:57 | PDOC2 ---
CONSULT Date of Consult Date of Consult DATE: 11/13/20 TIME: 12:54 Reason for Consult Reason for Consult: Anemia, liver cancer Referring Physician Referring Physician: Dr. Cheung Identification/Chief Complaint Chief Complaint Anemia Source Source: Chart review, Patient History of Present Illness Reason for Visit: Randolph Castorena is a 70-year-old male with low-grade intraductal papillary biliary neoplasm, oncocytic type, of the liver. Randolph was initially diagnosed in April 2019 after a mass was noted on MRI abdomen. He received bland embolization to the left hepatic mass in May 2019. He also received a repeat biopsy in June 2020 which showed papillary oncocytic neoplasm with surface ulceration/erosion, with similar morphology to the patient's previous biopsies. Focal areas suspicious for invasion (adenocarcinoma) were noted. In addition, rare cells present within the ulcer debris concerning for entamoeba histolytica. A trichrome stain and CSD68 immunostain were performed to evaluate for these organisms but the area of interest was on the stains. Stool ova and parasite exam recommended if clinically indicated. 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 The patient was deemed not a surgical candidate or a candidate for XRT. He established care with Dr. Jiménez and after discussion of the potential risks and benefits of both chemotherapy (with gemcitabine and nab-paclitaxel) and immunotherapy (pembrolizumab), he opted for immunotherapy. He received immunotherapy education on 11/12/2020. During his office visit, he reported weight loss of 20 pounds over the past 6 weeks. He also reported recent onset fever. His labs obtained during the office visit showed worsened anemia as well as a new leukocytosis. He was therefore asked to go to the ER for further evaluation. He is currently on empiric antibiotics and cultures have been obtained. Infectious disease consultation has been sought. He has received blood transfusion with improvement in hemoglobin. Oncology consultation has been soug ht due to the patient's history of liver cancer. He reports feeling better after his blood transfusion at the time of my assessment. No additional concerns at this time. , Past Medical History Heme/Onc: Cancer Hepatobiliary: Cirrhosis Social History No ALCOHOL: other (heavy in the past, now abotu 6 beers a week - usually a beer a day - most 2-3 daily) Current Problem List Problem List Problems Medical Problems: (1) Anemia Status: Acute (2) Dehydration Status: Acute (3) Leukocytosis Status: Acute (4) Liver cancer Status: Acute Current Medications Current Medications Current Medications Piperacillin Sod/ Tazobactam Sod 3.375 gm/Sodium Chloride 50 ml @ 100 mls/hr 1X ONCE IV Last administered on 11/12/20at 15:24; Start 11/12/20 at 15:30; Stop 11/12/20 at 15:59; Status DC Ondansetron HCl (Zofran) 4 mg PRN Q8HRS PRN IV NAUSEA/VOMITING; Start 11/12/20 at 16:00; Stop 11/13/20 at 15:59 Sodium Chloride 1,000 ml @ 75 mls/hr [id number] IV Last administered on 11/12/20at 16:38; Start 11/12/20 at 16:00; Stop 11/13/20 at 15:59 Piperacillin Sod/ Tazobactam Sod (Zosyn Per Pharmacy) 1 each PRN DAILY PRN MC SEE COMMENTS; Start 11/12/20 at 16:00 Piperacillin Sod/ Tazobactam Sod 3.375 gm/Sodium Chloride 50 ml @ 100 mls/hr Q6HRS IV Last administered on 11/13/20at 11:38; Start 11/13/20 at 00:00 Pantoprazole Sodium (PROTONIX VIAL for IV PUSH) 40 mg DAILYAC IVP Last administered on 11/12/20at 17:48; Start 11/12/20 at 17:00; Stop 11/13/20 at 10:43; Status DC Sodium Bicarbonate 50 meq/Sodium Chloride 1,050 ml @ 125 mls/hr Q8H24M IV Last administered on 11/13/20at 06:09; Start 11/12/20 at 18:00; Stop 11/13/20 at 10:47; Status DC Sodium Chloride (Normal Saline Flush) 3 ml QSHIFT PRN IV AFTER MEDS AND BLOOD DRAWS; Start 11/12/20 at 17:15 Ondansetron HCl (Zofran) 4 mg PRN Q4HRS PRN IV NAUSEA/VOMITING; Start 11/12/20 at 17:15 Acetaminophen (Tylenol) 650 mg PRN Q4HRS PRN PO TEMP OVER 100.4F OR MILD PAIN; Start 11/12/20 at 17:15 Docusate Sodium (Colace) 100 mg PRN BID PRN PO HARD STOOLS; Start 11/12/20 at 17:15 Albuterol Sulfate (Ventolin Neb Soln) 2.5 mg PRN Q4HRS PRN NEB SHORTNESS OF BREATH; Start 11/12/20 at 17:15 Guaifenesin (Robitussin) 200 mg PRN Q4HRS PRN PO COUGH; Start 11/12/20 at 17:15 Lorazepam (Ativan) 0.5 mg PRN Q4HRS PRN PO ANXIETY / AGITATION; Start 11/12/20 at 17:15 Lorazepam (Ativan Inj) 2 mg PRN Q4HRS PRN IV ANXIETY / AGITATION; Start 11/12/20 at 17:15 Enoxaparin Sodium (Lovenox 40mg Syringe) 40 mg Q24H SQ Last administered on 11/12/20at 23:43; Start 11/12/20 at 21:00 Piperacillin Sod/ Tazobactam Sod 3.375 gm/Sodium Chloride 50 ml @ 100 mls/hr Q6HRS IV ; Start 11/12/20 at 18:00; Status UNV Potassium Chloride/Water 100 ml @ 100 mls/hr Q1H IV Last administered on 11/13/20at 03:02; Start 11/13/20 at 01:00; Stop 11/13/20 at 03:59; Status DC Pantoprazole Sodium (Protonix) 40 mg DAILYAC PO Last administered on 11/13/20at 11:07; Start 11/13/20 at 11:30 Daptomycin 340 mg/ Sodium Chloride 50 ml @ 100 mls/hr Q24H IV ; Start 11/13/20 at 12:00 Allergies Allergies: Coded Allergies: No Known Drug Allergies (Unverified , 11/12/20) ROS General: YES: Fatigue PSYCHOLOGICAL ROS: No: Hallucinations, Hostility Eyes: No Eye Pain, No Itchy Eyes HEENT: No: Oral lesions ALLERGY AND IMMUNOLOGY: No: Nasal Congestion, Post Nasal Drip Hematological and Lymphatic: No: Brusing, Night Sweats ENDOCRINE: No: Malaise/lethargy, Mood Swings Breast: No Nipple discharge Respiratory: No: Shortness of breath, SOB with excertion Cardiovascular: No Paroxysmal Noc. Dyspnea, No Edema Gastrointestinal: No Diarrhea, No Constipation, No Melena, No Hematochezia Genitourinary: No Urgency, No Pain Musculoskeletal: No Joint Swelling, No Muscle Pain Neurological: No Headaches, No Impaired Coord/balance Skin: No Mole Changes, No Mottling Physical Exam General: mild distress, moderate distress HEENT: EOMI, Mucous membr. moist/pink Lungs: Normal air movement Heart: No murmurs Abdomen: No tenderness Extremities: No edema Skin: No significant lesion Neuro: Normal tone Psych/Mental Status: Mood NL MUSCULOSKELETAL: No joint tenderness Vitals VITALS Vital Signs Date Time Temp Pulse Resp B/P (MAP) Pulse Ox O2 Delivery O2 Flow Rate FiO2 11/13/20 11:00 98.7 72 18 97/58 (71) 100 Room Air 98.7 Labs Labs Laboratory Tests Test 11/12/20 17:00 11/13/20 00:05 11/13/20 08:00 White Blood Count 27.0 x10^3/uL (4.0-11.0) 15.6 x10^3/uL (4.0-11.0) 10.7 x10^3/uL (4.0-11.0) Red Blood Count 2.44 x10^6/uL (4.30-5.70) 2.59 x10^6/uL (4.30-5.70) 2.91 x10^6/uL (4.30-5.70) Hemoglobin 5.7 g/dL (13.0-17.5) 6.2 g/dL (13.0-17.5) 7.3 g/dL (13.0-17.5) Hematocrit 18.0 % (39.0-53.0) 19.7 % (39.0-53.0) 22.4 % (39.0-53.0) Mean Corpuscular Volume 74 fL (79-100) 76 fL (79-100) 77 fL (79-100) Mean Corpuscular Hemoglobin 23 pg (25-35) 24 pg (25-35) 25 pg (25-35) Mean Corpuscular Hemoglobin Concent 32 g/dL (31-37) 31 g/dL (31-37) 32 g/dL (31-37) Red Cell Distribution Width 20.5 % (11.5-14.5) 19.6 % (11.5-14.5) 18.9 % (11.5-14.5) Platelet Count 329 x10^3/uL (140-400) 268 x10^3/uL (140-400) 267 x10^3/uL (140-400) Sodium Level 124 mmol/L (136-145) 126 mmol/L (136-145) 130 mmol/L (136-145) Potassium Level 3.2 mmol/L (3.5-5.1) 2.9 mmol/L (3.5-5.1) 3.6 mmol/L (3.5-5.1) Chloride Level 92 mmol/L (98-107) 97 mmol/L (98-107) 100 mmol/L (98-107) Carbon Dioxide Level 19 mmol/L (21-32) 21 mmol/L (21-32) 23 mmol/L (21-32) Anion Gap 13 (6-14) 8 (6-14) 7 (6-14) Blood Urea Nitrogen 59 mg/dL (8-26) 42 mg/dL (8-26) 31 mg/dL (8-26) Creatinine 1.1 mg/dL (0.7-1.3) 1.0 mg/dL (0.7-1.3) 0.7 mg/dL (0.7-1.3) Estimated GFR (Cockcroft-Gault) 66.0 73.7 111.2 Glucose Level 113 mg/dL (70-99) 115 mg/dL (70-99) 92 mg/dL (70-99) Lactic Acid Level 1.1 mmol/L (0.4-2.0) Calcium Level 7.7 mg/dL (8.5-10.1) 7.7 mg/dL (8.5-10.1) 7.7 mg/dL (8.5-10.1) Troponin I Quantitative < 0.017 ng/mL (0.000-0.055) Procalcitonin 11.90 ng/mL (0.00-0.10) Neutrophils (%) (Auto) 84 % (31-73) Lymphocytes (%) (Auto) 7 % (24-48) Monocytes (%) (Auto) 9 % (0-9) Eosinophils (%) (Auto) 0 % (0-3) Basophils (%) (Auto) 0 % (0-3) Neutrophils # (Auto) 9.0 x10^3/uL (1.8-7.7) Lymphocytes # (Auto) 0.7 x10^3/uL (1.0-4.8) Monocytes # (Auto) 1.0 x10^3/uL (0.0-1.1) Eosinophils # (Auto) 0.0 x10^3/uL (0.0-0.7) Basophils # (Auto) 0.0 x10^3/uL (0.0-0.2) BUN/Creatinine Ratio 44 (6-20) Total Bilirubin 1.3 mg/dL (0.2-1.0) Aspartate Amino Transf (AST/SGOT) 34 U/L (15-37) Alanine Aminotransferase (ALT/SGPT) 20 U/L (16-63) Alkaline Phosphatase 100 U/L (46-116) Total Protein 5.7 g/dL (6.4-8.2) Albumin 1.7 g/dL (3.4-5.0) Albumin/Globulin Ratio 0.4 (1.0-1.7) Laboratory Tests Test 11/12/20 17:00 11/13/20 00:05 11/13/20 08:00 White Blood Count 27.0 x10^3/uL (4.0-11.0) 15.6 x10^3/uL (4.0-11.0) 10.7 x10^3/uL (4.0-11.0) Red Blood Count 2.44 x10^6/uL (4.30-5.70) 2.59 x10^6/uL (4.30-5.70) 2.91 x10^6/uL (4.30-5.70) Hemoglobin 5.7 g/dL (13.0-17.5) 6.2 g/dL (13.0-17.5) 7.3 g/dL (13.0-17.5) Hematocrit 18.0 % (39.0-53.0) 19.7 % (39.0-53.0) 22.4 % (39.0-53.0) Mean Corpuscular Volume 74 fL (79-100) 76 fL (79-100) 77 fL (79-100) Mean Corpuscular Hemoglobin 23 pg (25-35) 24 pg (25-35) 25 pg (25-35) Mean Corpuscular Hemoglobin Concent 32 g/dL (31-37) 31 g/dL (31-37) 32 g/dL (31-37) Red Cell Distribution Width 20.5 % (11.5-14.5) 19.6 % (11.5-14.5) 18.9 % (11.5-14.5) Platelet Count 329 x10^3/uL (140-400) 268 x10^3/uL (140-400) 267 x10^3/uL (140-400) Sodium Level 124 mmol/L (136-145) 126 mmol/L (136-145) 130 mmol/L (136-145) Potassium Level 3.2 mmol/L (3.5-5.1) 2.9 mmol/L (3.5-5.1) 3.6 mmol/L (3.5-5.1) Chloride Level 92 mmol/L (98-107) 97 mmol/L (98-107) 100 mmol/L (98-107) Carbon Dioxide Level 19 mmol/L (21-32) 21 mmol/L (21-32) 23 mmol/L (21-32) Anion Gap 13 (6-14) 8 (6-14) 7 (6-14) Blood Urea Nitrogen 59 mg/dL (8-26) 42 mg/dL (8-26) 31 mg/dL (8-26) Creatinine 1.1 mg/dL (0.7-1.3) 1.0 mg/dL (0.7-1.3) 0.7 mg/dL (0.7-1.3) Estimated GFR (Cockcroft-Gault) 66.0 73.7 111.2 Glucose Level 113 mg/dL (70-99) 115 mg/dL (70-99) 92 mg/dL (70-99) Lactic Acid Level 1.1 mmol/L (0.4-2.0) Calcium Level 7.7 mg/dL (8.5-10.1) 7.7 mg/dL (8.5-10.1) 7.7 mg/dL (8.5-10.1) Troponin I Quantitative < 0.017 ng/mL (0.000-0.055) Procalcitonin 11.90 ng/mL (0.00-0.10) Neutrophils (%) (Auto) 84 % (31-73) Lymphocytes (%) (Auto) 7 % (24-48) Monocytes (%) (Auto) 9 % (0-9) Eosinophils (%) (Auto) 0 % (0-3) Basophils (%) (Auto) 0 % (0-3) Neutrophils # (Auto) 9.0 x10^3/uL (1.8-7.7) Lymphocytes # (Auto) 0.7 x10^3/uL (1.0-4.8) Monocytes # (Auto) 1.0 x10^3/uL (0.0-1.1) Eosinophils # (Auto) 0.0 x10^3/uL (0.0-0.7) Basophils # (Auto) 0.0 x10^3/uL (0.0-0.2) BUN/Creatinine Ratio 44 (6-20) Total Bilirubin 1.3 mg/dL (0.2-1.0) Aspartate Amino Transf (AST/SGOT) 34 U/L (15-37) Alanine Aminotransferase (ALT/SGPT) 20 U/L (16-63) Alkaline Phosphatase 100 U/L (46-116) Total Protein 5.7 g/dL (6.4-8.2) Albumin 1.7 g/dL (3.4-5.0) Albumin/Globulin Ratio 0.4 (1.0-1.7) Assessment/Plan Assessment/Plan Assessment: Intraductal papillary biliary neoplasm, oncocytic type Leukocytosis, likely reactive versus secondary to biliary sepsis Iron deficiency anemia, likely secondary to chronic bleeding from liver tumor. Now improved after blood transfusion Weight loss, Likely secondary to malignancy Recommendations: -Additional imaging findings were obtained at outside hospital. Would not recommend any additional scans at this time -Continue with empiric antibiotics per infectious disease service. We will follow up cultures. -Transfuse as needed to maintain hemoglobin greater than 7 -Assess in the office for additional parenteral iron supplementation -Reasonable to discharge from hospital if cultures remain negative and his clinical status continues to improve -We will plan on starting systemic therapy with pembrolizumab after discharge from hospital. -Rest per Dr. Skye Cunningham MD Medical Oncology/Hematology Ph: [phone] PRINCE CUNNINGHAM MD Nov 13, 2020 12:57
[2020-11-13] MEDS: IV NORMAL SALINE 1000ML BAG 1,000 ML IV SCH (13:00)
[2020-11-13] MEDS: DAPTOmycin (GENERIC) IVPB 340 MG in IV NORMAL SALINE 50ML 50 ML IV SCH (13:01)
[2020-11-13 13:31] LABS: FECAL OB PT NEGATIVE (NEG)
--- NOTE | 2020-11-13 14:43 | NUR ---
SS following up with discharge planning. SS reviewed pt chart and discussed with pt RN. Pt is currently on room air. Pt has positive blood cultures. Pt on IV Zosyn and IV Daptomycin. Per RN, pt received blood overnight. PT recommended home independent. SS will continue to follow for discharge planning.
[2020-11-13] MEDS: ENOXAPARIN 40 MG/0.4 ML SYRINGE. SQ SCH (21:32)
[2020-11-14] VITALS (12 sets, daily range): BP systolic 86–112; BP diastolic 49–68
[2020-11-14] MEDS: PIPERACILLIN/TAZOBACTAM 3.375 GM in IV NORMAL SALINE 50ML 50 ML IV SCH ×5 (00:18→23:32)
[2020-11-14 02:44] LABS: BASO % 0 % (0-3); EOS % 0 % (0-3); HEMATOCRIT 21.7 % (39.0-53.0); LYMPH # 1.1 x10^3/uL (1.0-4.8); LYMPH % 7 % (24-48); MEAN CORPUSCULAR HEMOGLOBIN 25 pg (25-35); MEAN CORPUSCULAR HGB CONC 32 g/dL (31-37); MEAN CORPUSCULAR VOLUME 78 fL (79-100); MONO # 1.1 x10^3/uL (0.0-1.1); MONO % 8 % (0-9); NEUT # 12.2 x10^3/uL (1.8-7.7); NEUT % 84 % (31-73); PLATELET COUNT 261 x10^3/uL (140-400); RED CELL DISTRIBUTION WIDTH 19.1 % (11.5-14.5); WHITE BLOOD COUNT 14.4 x10^3/uL (4.0-11.0)
[2020-11-14 03:02] LABS: ALBUMIN 1.7 g/dL (3.4-5.0); ALBUMIN/GLOBULIN RATIO 0.5 (1.0-1.7); CALCIUM 7.5 mg/dL (8.5-10.1); CREATININE 0.7 mg/dL (0.7-1.3); GFR 111.2; MAGNESIUM 1.5 mg/dL (1.8-2.4); PHOSPHORUS 1.6 mg/dL (2.6-4.7); POTASSIUM 3.1 mmol/L (3.5-5.1); TOTAL BILIRUBIN 0.6 mg/dL (0.2-1.0); TOTAL PROTEIN 5.4 g/dL (6.4-8.2)
[2020-11-14 03:38] LABS: HEMOGLOBIN 6.9 g/dL (13.0-17.5)
--- NOTE | 2020-11-14 06:05 | NUR ---
Packed RBCS started post 2 RN verification. Blood tubing primed with NS and then Packed RBCS. Rate started at 50 ml/hr. Patient vitals documented on transfusion charting. Patient A$O x 4. Patient denies any C/O at this time. RN ast bedside to monitor transfusion for the first 15 minutes.
--- NOTE | 2020-11-14 06:20 | NUR ---
Patient vitals stable(see transfusion vital documentation). Patient denies any c/o of SOB, no rash noted, no chills. no itching or any signs of reaction. Packed RBCS infusing without difficulty. Rate increased to 100 ml/hr. Will monitor.
--- NOTE | 2020-11-14 07:05 | NUR ---
Transfusion continues. No S/S of reaction. Patient denies SOA, LCTA, No chilss,itching, rash noted. Report to Mirta BARRIOS packed RBC transfusion and vital time due next at 0805 and on the hour until complete and 1 hour post Transfusion.
--- NOTE | 2020-11-14 08:24 | PDOC ---
Infectious Disease Note Subjective: Subjective Patient without complaints Feels much better Status post blood transfusion 1 unit this a.m. Denies fever, nausea, vomiting, shortness of breath, diarrhea, abdominal pain, rash Otherwise as above Vital Signs: Vital Signs Vital Signs Date Time Temp Pulse Resp B/P (MAP) Pulse Ox O2 Delivery O2 Flow Rate FiO2 11/14/20 07:05 98.0 75 18 90/52 98.0 11/14/20 07:00 95 Room Air Physical Exam: PHYSICAL EXAM GENERAL: Alert, oriented, thin, malnourished male in no acute distress. HEENT: Normocephalic, atraumatic. Poor dentition. No thrush. NECK: Supple, no JVD, no lymphadenopathy. LUNGS: Clear bilaterally. No wheezing. HEART: S1, S2. No gallops or murmurs. ABDOMEN: Soft. Mass felt in the epigastric and right upper quadrant. No pulsatile mass noted. Bowel sounds present. No guarding, no rigidity. Chest wall Port-A-Cath site, right chest wall, looks clean. EXTREMITIES: No edema, no cyanosis. DERMATOLOGIC: Warm and dry. No generalized rash. NEUROLOGIC: Alert and oriented x 3, grossly nonfocal. PSYCHIATRIC: Cooperative, appropriate mood and affect. Medications: Inpatient Meds: Current Medications Medications (Trade) Dose Ordered Sig/Ric Start Time Stop Time Status Last Admin Dose Admin Acetaminophen (Tylenol) 650 mg PRN Q4HRS PRN 11/12/20 17:15 Albuterol Sulfate (Ventolin Neb Soln) 2.5 mg PRN Q4HRS PRN 11/12/20 17:15 Daptomycin 340 mg/ Sodium Chloride 50 ml @ 100 mls/hr Q24H 11/13/20 12:00 11/13/20 13:01 100 MLS/HR Docusate Sodium (Colace) 100 mg PRN BID PRN 11/12/20 17:15 Enoxaparin Sodium (Lovenox 40mg Syringe) 40 mg Q24H 11/12/20 21:00 11/13/20 21:32 40 MG Guaifenesin (Robitussin) 200 mg PRN Q4HRS PRN 11/12/20 17:15 Lorazepam (Ativan Inj) 2 mg PRN Q4HRS PRN 11/12/20 17:15 Lorazepam (Ativan) 0.5 mg PRN Q4HRS PRN 11/12/20 17:15 Ondansetron HCl (Zofran) 4 mg PRN Q4HRS PRN 11/12/20 17:15 Pantoprazole Sodium (PROTONIX VIAL for IV PUSH) 40 mg DAILYAC 11/12/20 17:00 11/13/20 10:43 DC 11/12/20 17:48 40 MG Pantoprazole Sodium (Protonix) 40 mg DAILYAC 11/13/20 11:30 11/13/20 11:07 40 MG Piperacillin Sod/ Tazobactam Sod (Zosyn Per Pharmacy) 1 each PRN DAILY PRN 11/12/20 16:00 Piperacillin Sod/ Tazobactam Sod 3.375 gm/Sodium Chloride 50 ml @ 100 mls/hr Q6HRS 11/12/20 18:00 UNV Potassium Chloride/Water 100 ml @ 100 mls/hr Q1H 11/13/20 01:00 11/13/20 03:59 DC 11/13/20 03:02 100 MLS/HR Sodium Bicarbonate 50 meq/Sodium Chloride 1,050 ml @ 125 mls/hr Q8H24M 11/12/20 18:00 11/13/20 10:47 DC 11/13/20 06:09 125 MLS/HR Sodium Chloride (Normal Saline Flush) 3 ml QSHIFT PRN 11/12/20 17:15 Labs: Lab Laboratory Tests Test 11/13/20 12:40 11/14/20 02:00 Stool Occult Blood Negative (NEG) White Blood Count 14.4 x10^3/uL (4.0-11.0) Red Blood Count 2.80 x10^6/uL (4.30-5.70) Hemoglobin 6.9 g/dL (13.0-17.5) Hematocrit 21.7 % (39.0-53.0) Mean Corpuscular Volume 78 fL (79-100) Mean Corpuscular Hemoglobin 25 pg (25-35) Mean Corpuscular Hemoglobin Concent 32 g/dL (31-37) Red Cell Distribution Width 19.1 % (11.5-14.5) Platelet Count 261 x10^3/uL (140-400) Neutrophils (%) (Auto) 84 % (31-73) Lymphocytes (%) (Auto) 7 % (24-48) Monocytes (%) (Auto) 8 % (0-9) Eosinophils (%) (Auto) 0 % (0-3) Basophils (%) (Auto) 0 % (0-3) Neutrophils # (Auto) 12.2 x10^3/uL (1.8-7.7) Lymphocytes # (Auto) 1.1 x10^3/uL (1.0-4.8) Monocytes # (Auto) 1.1 x10^3/uL (0.0-1.1) Eosinophils # (Auto) 0.0 x10^3/uL (0.0-0.7) Basophils # (Auto) 0.0 x10^3/uL (0.0-0.2) Sodium Level 132 mmol/L (136-145) Potassium Level 3.1 mmol/L (3.5-5.1) Chloride Level 100 mmol/L (98-107) Carbon Dioxide Level 21 mmol/L (21-32) Anion Gap 11 (6-14) Blood Urea Nitrogen 14 mg/dL (8-26) Creatinine 0.7 mg/dL (0.7-1.3) Estimated GFR (Cockcroft-Gault) 111.2 BUN/Creatinine Ratio 20 (6-20) Glucose Level 92 mg/dL (70-99) Calcium Level 7.5 mg/dL (8.5-10.1) Phosphorus Level 1.6 mg/dL (2.6-4.7) Magnesium Level 1.5 mg/dL (1.8-2.4) Total Bilirubin 0.6 mg/dL (0.2-1.0) Aspartate Amino Transf (AST/SGOT) 31 U/L (15-37) Alanine Aminotransferase (ALT/SGPT) 17 U/L (16-63) Alkaline Phosphatase 98 U/L (46-116) Total Protein 5.4 g/dL (6.4-8.2) Albumin 1.7 g/dL (3.4-5.0) Albumin/Globulin Ratio 0.5 (1.0-1.7) Micro RUN DATE: 11/14/20 [facility] *LIVE* PAGE 1 RUN TIME: 728 Specimen Inquiry PATIENT: MISTY BETH ACCT: [id number] LOC: [address] [place] [address] U: [id number] AGE/SX: 70/M ROOM: [facility] [place] RE11/12/[address]: VALDO JOHANSEN MD : 1950 BED: 1 DIS: STATUS: ADM IN TLOC: SPEC #: [id number] ARTHUR: 11/12/20 STATUS: COMP REQ #: [id number] RECD: 11/12/[address]: VALDO JOHANSEN MD SOURCE: BLOOD ENTR: 11/12/20-[address]: DEANNA LYNCH MD SPDESC: PRINCE CUNNINGHAM MD, VENU S MD PHAN,JULI BURK,DIMA ROSENTHAL,HAIM Mancera MD ORDERED: BCULT Procedure Result BLOOD CULTURE Final GRAM POSITIVE COCCI IN CLUSTERS SEEN IN 1 OF 2 BOTTLES, 2 SETS (OF 1 BOTTLE/SET) COLLECTED ON 11/12/20. CALLED TO FREDERICK DUMONT AT 0728 11/14/20 BY TIMO. CULTURE SENT TO [facility] FOR FURTHER WORKUP. Objective: Assessment: 1. Sepsis. 2. Gram-positive cocci bacteremia, source appears GI. 3. Severe anemia, status post 3 units of packed RBC. 4. Leukocytosis, likely reactive. Improved 5. Hyponatremia and hypokalemia. 6. History of biliary neoplasm with extensive workup and surgery at and [place]. 7. Port-A-Cath placement, right chest wall. Site appears clean 8. Weight loss of 20 pounds in the last 4 weeks. 9. Protein-calorie malnutrition. Plan: Plan of Care 1. Continue Zosyn. 2. cont daptomycin, pending final ID and JOSE of GPC in blood cultures. 3. f/u Repeat blood cultures from Port-A-Cath and periphery. 4. Monitor labs 5. Continue supportive care. Discussed with nursing staff DEANNA LYNCH MD Nov 14, 2020 08:24
[2020-11-14] MEDS: PANTOPRAZOLE 40 MG TABLET.DR. PO SCH (08:29)
--- NOTE | 2020-11-14 12:03 | PDOC ---
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 Patient wanted to review his entire course with me today. We spent about 30 minutes discussing his symptoms and work-up over the last year and a half. He does appear quite anxious about all of this. He tells me that he lost his job this year as well as his family as his of 14 years left him and they share a 14-year-old son together. He has a big family and mother at age 92 is still living. He is 1 of 9 children and so tells me that among all of them he will have the support that he needs. He is currently living alone. He is lost 40 pounds in the last year. He denies any obvious bleeding, pain, nausea, vomiting. Tells me that his bowel habits are normal. He has had bouts of severe anemia related to this mass. He has just established with oncology here at [facility]. 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 Total time today is 37 minutes with greater than 50% in counseling and coordination of care most of which in discussion with patient. Hemoglobin was 6.9 this morning and he did have 1 unit of packed red blood cells for that. Follow-up hemoglobin is planned for this afternoon. The patient is a full code. Problems: (1) Liver cancer (2) Anemia (3) Dehydration (4) NAEL (acute kidney injury) VITAL SIGNS Vital Signs/I&O: Vital Signs Date Time Temp Pulse Resp B/P (MAP) Pulse Ox O2 Delivery O2 Flow Rate FiO2 11/14/20 10:49 98.2 68 18 92/55 (67) 96 Room Air 98.2 I & O 11/13/20 11/13/20 11/14/20 15:00 23:00 07:00 Intake Total 575 ml 1950 ml 440 ml Output Total 600 ml 0 ml Balance -25 ml 1950 ml 440 ml In general the patient is pleasant very chatty at baseline orientation in no acute distress HEENT exam is unremarkable Chest is clear to auscultation Heart S1-S2 normal regular rate and rhythm no murmurs or gallops are noted Abdomen distended soft nontender no masses organomegaly noted. Bowel sounds are present though diminished Extremity exam is unremarkable for acute abnormality ALLERGIES Allergies: Allergies Coded Allergies Type Severity Reaction Last Updated Verified No Known Drug Allergies 11/12/20 No MEDS Medications: Current Medications Medications (Trade) Dose Ordered Sig/Ric Start Time Stop Time Status Last Admin Dose Admin Acetaminophen (Tylenol) 650 mg PRN Q4HRS PRN 11/12/20 17:15 Albuterol Sulfate (Ventolin Neb Soln) 2.5 mg PRN Q4HRS PRN 11/12/20 17:15 Daptomycin 340 mg/ Sodium Chloride 50 ml @ 100 mls/hr Q24H 11/13/20 12:00 11/13/20 13:01 Docusate Sodium (Colace) 100 mg PRN BID PRN 11/12/20 17:15 Enoxaparin Sodium (Lovenox 40mg Syringe) 40 mg Q24H 11/12/20 21:00 11/13/20 21:32 Guaifenesin (Robitussin) 200 mg PRN Q4HRS PRN 11/12/20 17:15 Lorazepam (Ativan Inj) 2 mg PRN Q4HRS PRN 11/12/20 17:15 Lorazepam (Ativan) 0.5 mg PRN Q4HRS PRN 11/12/20 17:15 Ondansetron HCl (Zofran) 4 mg PRN Q4HRS PRN 11/12/20 17:15 Pantoprazole Sodium (PROTONIX VIAL for IV PUSH) 40 mg DAILYAC 11/12/20 17:00 11/13/20 10:43 DC 11/12/20 17:48 Pantoprazole Sodium (Protonix) 40 mg DAILYAC 11/13/20 11:30 11/14/20 08:29 Piperacillin Sod/ Tazobactam Sod (Zosyn Per Pharmacy) 1 each PRN DAILY PRN 11/12/20 16:00 Piperacillin Sod/ Tazobactam Sod 3.375 gm/Sodium Chloride 50 ml @ 100 mls/hr Q6HRS 11/12/20 18:00 UNV Potassium Chloride/Water 100 ml @ 100 mls/hr Q1H 11/13/20 01:00 11/13/20 03:59 DC 11/13/20 03:02 Potassium Chloride (Klor-Con) 20 meq BID 11/14/20 12:00 Sodium Bicarbonate 50 meq/Sodium Chloride 1,050 ml @ 125 mls/hr Q8H24M 11/12/20 18:00 11/13/20 10:47 DC 11/13/20 06:09 Sodium Chloride (Normal Saline Flush) 3 ml QSHIFT PRN 11/12/20 17:15 Current Medications Medications (Trade) Dose Ordered Sig/Ric Route PRN Reason Start Time Stop Time Status Last Admin Dose Admin Daptomycin 340 mg/ Sodium Chloride 50 ml @ 100 mls/hr Q24H IV 11/13/20 12:00 11/13/20 13:01 LAB Lab: Laboratory Tests Test 11/13/20 12:40 11/14/20 02:00 Stool Occult Blood Negative (NEG) White Blood Count 14.4 x10^3/uL (4.0-11.0) H Red Blood Count 2.80 x10^6/uL (4.30-5.70) L Hemoglobin 6.9 g/dL (13.0-17.5) *L Hematocrit 21.7 % (39.0-53.0) L Mean Corpuscular Volume 78 fL (79-100) L Mean Corpuscular Hemoglobin 25 pg (25-35) Mean Corpuscular Hemoglobin Concent 32 g/dL (31-37) Red Cell Distribution Width 19.1 % (11.5-14.5) H Platelet Count 261 x10^3/uL (140-400) Neutrophils (%) (Auto) 84 % (31-73) H Lymphocytes (%) (Auto) 7 % (24-48) L Monocytes (%) (Auto) 8 % (0-9) Eosinophils (%) (Auto) 0 % (0-3) Basophils (%) (Auto) 0 % (0-3) Neutrophils # (Auto) 12.2 x10^3/uL (1.8-7.7) H Lymphocytes # (Auto) 1.1 x10^3/uL (1.0-4.8) Monocytes # (Auto) 1.1 x10^3/uL (0.0-1.1) Eosinophils # (Auto) 0.0 x10^3/uL (0.0-0.7) Basophils # (Auto) 0.0 x10^3/uL (0.0-0.2) Sodium Level 132 mmol/L (136-145) L Potassium Level 3.1 mmol/L (3.5-5.1) L Chloride Level 100 mmol/L (98-107) Carbon Dioxide Level 21 mmol/L (21-32) Anion Gap 11 (6-14) Blood Urea Nitrogen 14 mg/dL (8-26) Creatinine 0.7 mg/dL (0.7-1.3) Estimated GFR (Cockcroft-Gault) 111.2 BUN/Creatinine Ratio 20 (6-20) Glucose Level 92 mg/dL (70-99) Calcium Level 7.5 mg/dL (8.5-10.1) L Phosphorus Level 1.6 mg/dL (2.6-4.7) L Magnesium Level 1.5 mg/dL (1.8-2.4) L Total Bilirubin 0.6 mg/dL (0.2-1.0) Aspartate Amino Transferase (AST) 31 U/L (15-37) Alanine Aminotransferase (ALT) 17 U/L (16-63) Alkaline Phosphatase 98 U/L (46-116) Total Protein 5.4 g/dL (6.4-8.2) L Albumin 1.7 g/dL (3.4-5.0) L Albumin/Globulin Ratio 0.5 (1.0-1.7) L Laboratory Tests 11/14/20 02:00 Laboratory Tests 11/14/20 02:00 ASSESSMENT & PLAN A&P Plan as noted above This note was created using [employer] and may have omissions and/or errors due to the nature of real-time voice first sampler. Justifications for Admission General Conditions Poss tachycardia?: Yes Justification for admission: Patient has tachycardia (> 100 beats per minute) which is not readily corrected by appropriate treatment within 12 to 24 hours. SEPSIS, PROFOUND ANEMIA, GI BLEED Other Justification Nutrition Consultation Dietary Evaluation: Recommendations by RD: Dietary education by RD, Increase Calorie Intake, Protein supplementation Comments: Continue w/regular diet, honor food preferences, provide snacks as requested REC Ensure (chocolate or vanilla) TID Expected Outcomes/Goals: PO intake to meet >75% est needs Interpretation of weight loss: >5% in 1 month Malnutrition Findings: Body Fat Depletion (Non Severe: Mod to Severe Weight Status: Underweight ARIANNE MURDOCK MD Nov 14, 2020 12:03
[2020-11-14] MEDS: DAPTOmycin (GENERIC) IVPB 340 MG in IV NORMAL SALINE 50ML 50 ML IV SCH (12:24)
[2020-11-14] MEDS: POTASSIUM CHLORIDE 20 MEQ TABLET.ER. PO SCH ×2 (12:24→20:41)
--- NOTE | 2020-11-14 14:20 | PDOC ---
PROGRESS NOTES Date of Service DATE: 11/14/20 TIME: 14:18 Subjective Subjective SEEN IN FOLLOW UP OF ARF AND HYPONATREMIA Objective Objective Vital Signs Date Time Temp Pulse Resp B/P (MAP) Pulse Ox O2 Delivery O2 Flow Rate FiO2 11/14/20 10:49 98.2 68 18 92/55 (67) 96 Room Air 98.2 Intake and Output 11/14/20 07:00 Intake Total 2965 ml Output Total 600 ml Balance 2365 ml Intake Oral 1915 ml IV Total 1050 ml Output Urine Total 0 ml Stool Total 600 ml # Voids 4 # Bowel Movements 3 Physical Exam General: Alert, Oriented X3, Cooperative, No acute distress Lungs: Clear to auscultation, Normal air movement Psych/Mental Status: Mental status NL, Mood NL Diagnosis RENAL FAILURE: Acute, Other (DEHYDRATION WITH HYPONATREMIA) Assessment Assessment Problems Medical Problems: (1) Anemia Status: Acute (2) Dehydration Status: Acute (3) Leukocytosis Status: Acute (4) Liver cancer Status: Acute Plan Plan of Care RENAL FUNCTION AND SERUM SODIUM ARE BETTER. CONT FLUID BALANCE. RENAL WILL SIGN OFF Comment Review of Relevant I have reviewed the following items trini (where applicable) has been applied. Labs Laboratory Tests Test 11/12/20 17:00 11/13/20 00:05 11/13/20 08:00 11/13/20 12:40 White Blood Count 27.0 x10^3/uL (4.0-11.0) 15.6 x10^3/uL (4.0-11.0) 10.7 x10^3/uL (4.0-11.0) Red Blood Count 2.44 x10^6/uL (4.30-5.70) 2.59 x10^6/uL (4.30-5.70) 2.91 x10^6/uL (4.30-5.70) Hemoglobin 5.7 g/dL (13.0-17.5) 6.2 g/dL (13.0-17.5) 7.3 g/dL (13.0-17.5) Hematocrit 18.0 % (39.0-53.0) 19.7 % (39.0-53.0) 22.4 % (39.0-53.0) Mean Corpuscular Volume 74 fL (79-100) 76 fL (79-100) 77 fL (79-100) Mean Corpuscular Hemoglobin 23 pg (25-35) 24 pg (25-35) 25 pg (25-35) Mean Corpuscular Hemoglobin Concent 32 g/dL (31-37) 31 g/dL (31-37) 32 g/dL (31-37) Red Cell Distribution Width 20.5 % (11.5-14.5) 19.6 % (11.5-14.5) 18.9 % (11.5-14.5) Platelet Count 329 x10^3/uL (140-400) 268 x10^3/uL (140-400) 267 x10^3/uL (140-400) Urine Osmolality 615 mOsmol/kg (.) Sodium Level 124 mmol/L (136-145) 126 mmol/L (136-145) 130 mmol/L (136-145) Potassium Level 3.2 mmol/L (3.5-5.1) 2.9 mmol/L (3.5-5.1) 3.6 mmol/L (3.5-5.1) Chloride Level 92 mmol/L (98-107) 97 mmol/L (98-107) 100 mmol/L (98-107) Carbon Dioxide Level 19 mmol/L (21-32) 21 mmol/L (21-32) 23 mmol/L (21-32) Anion Gap 13 (6-14) 8 (6-14) 7 (6-14) Blood Urea Nitrogen 59 mg/dL (8-26) 42 mg/dL (8-26) 31 mg/dL (8-26) Creatinine 1.1 mg/dL (0.7-1.3) 1.0 mg/dL (0.7-1.3) 0.7 mg/dL (0.7-1.3) Estimated GFR (Cockcroft-Gault) 66.0 73.7 111.2 Glucose Level 113 mg/dL (70-99) 115 mg/dL (70-99) 92 mg/dL (70-99) Plasma/Serum Osmolality 276 mOsmol/kg (280-301) Lactic Acid Level 1.1 mmol/L (0.4-2.0) Calcium Level 7.7 mg/dL (8.5-10.1) 7.7 mg/dL (8.5-10.1) 7.7 mg/dL (8.5-10.1) Troponin I Quantitative < 0.017 ng/mL (0.000-0.055) Procalcitonin 11.90 ng/mL (0.00-0.10) Neutrophils (%) (Auto) 84 % (31-73) Lymphocytes (%) (Auto) 7 % (24-48) Monocytes (%) (Auto) 9 % (0-9) Eosinophils (%) (Auto) 0 % (0-3) Basophils (%) (Auto) 0 % (0-3) Neutrophils # (Auto) 9.0 x10^3/uL (1.8-7.7) Lymphocytes # (Auto) 0.7 x10^3/uL (1.0-4.8) Monocytes # (Auto) 1.0 x10^3/uL (0.0-1.1) Eosinophils # (Auto) 0.0 x10^3/uL (0.0-0.7) Basophils # (Auto) 0.0 x10^3/uL (0.0-0.2) BUN/Creatinine Ratio 44 (6-20) Total Bilirubin 1.3 mg/dL (0.2-1.0) Aspartate Amino Transf (AST/SGOT) 34 U/L (15-37) Alanine Aminotransferase (ALT/SGPT) 20 U/L (16-63) Alkaline Phosphatase 100 U/L (46-116) Total Protein 5.7 g/dL (6.4-8.2) Albumin 1.7 g/dL (3.4-5.0) Albumin/Globulin Ratio 0.4 (1.0-1.7) Stool Occult Blood Negative (NEG) Test 11/14/20 02:00 White Blood Count 14.4 x10^3/uL (4.0-11.0) Red Blood Count 2.80 x10^6/uL (4.30-5.70) Hemoglobin 6.9 g/dL (13.0-17.5) Hematocrit 21.7 % (39.0-53.0) Mean Corpuscular Volume 78 fL (79-100) Mean Corpuscular Hemoglobin 25 pg (25-35) Mean Corpuscular Hemoglobin Concent 32 g/dL (31-37) Red Cell Distribution Width 19.1 % (11.5-14.5) Platelet Count 261 x10^3/uL (140-400) Neutrophils (%) (Auto) 84 % (31-73) Lymphocytes (%) (Auto) 7 % (24-48) Monocytes (%) (Auto) 8 % (0-9) Eosinophils (%) (Auto) 0 % (0-3) Basophils (%) (Auto) 0 % (0-3) Neutrophils # (Auto) 12.2 x10^3/uL (1.8-7.7) Lymphocytes # (Auto) 1.1 x10^3/uL (1.0-4.8) Monocytes # (Auto) 1.1 x10^3/uL (0.0-1.1) Eosinophils # (Auto) 0.0 x10^3/uL (0.0-0.7) Basophils # (Auto) 0.0 x10^3/uL (0.0-0.2) Sodium Level 132 mmol/L (136-145) Potassium Level 3.1 mmol/L (3.5-5.1) Chloride Level 100 mmol/L (98-107) Carbon Dioxide Level 21 mmol/L (21-32) Anion Gap 11 (6-14) Blood Urea Nitrogen 14 mg/dL (8-26) Creatinine 0.7 mg/dL (0.7-1.3) Estimated GFR (Cockcroft-Gault) 111.2 BUN/Creatinine Ratio 20 (6-20) Glucose Level 92 mg/dL (70-99) Calcium Level 7.5 mg/dL (8.5-10.1) Phosphorus Level 1.6 mg/dL (2.6-4.7) Magnesium Level 1.5 mg/dL (1.8-2.4) Total Bilirubin 0.6 mg/dL (0.2-1.0) Aspartate Amino Transf (AST/SGOT) 31 U/L (15-37) Alanine Aminotransferase (ALT/SGPT) 17 U/L (16-63) Alkaline Phosphatase 98 U/L (46-116) Total Protein 5.4 g/dL (6.4-8.2) Albumin 1.7 g/dL (3.4-5.0) Albumin/Globulin Ratio 0.5 (1.0-1.7) Laboratory Tests Test 11/14/20 02:00 White Blood Count 14.4 x10^3/uL (4.0-11.0) Red Blood Count 2.80 x10^6/uL (4.30-5.70) Hemoglobin 6.9 g/dL (13.0-17.5) Hematocrit 21.7 % (39.0-53.0) Mean Corpuscular Volume 78 fL (79-100) Mean Corpuscular Hemoglobin 25 pg (25-35) Mean Corpuscular Hemoglobin Concent 32 g/dL (31-37) Red Cell Distribution Width 19.1 % (11.5-14.5) Platelet Count 261 x10^3/uL (140-400) Neutrophils (%) (Auto) 84 % (31-73) Lymphocytes (%) (Auto) 7 % (24-48) Monocytes (%) (Auto) 8 % (0-9) Eosinophils (%) (Auto) 0 % (0-3) Basophils (%) (Auto) 0 % (0-3) Neutrophils # (Auto) 12.2 x10^3/uL (1.8-7.7) Lymphocytes # (Auto) 1.1 x10^3/uL (1.0-4.8) Monocytes # (Auto) 1.1 x10^3/uL (0.0-1.1) Eosinophils # (Auto) 0.0 x10^3/uL (0.0-0.7) Basophils # (Auto) 0.0 x10^3/uL (0.0-0.2) Sodium Level 132 mmol/L (136-145) Potassium Level 3.1 mmol/L (3.5-5.1) Chloride Level 100 mmol/L (98-107) Carbon Dioxide Level 21 mmol/L (21-32) Anion Gap 11 (6-14) Blood Urea Nitrogen 14 mg/dL (8-26) Creatinine 0.7 mg/dL (0.7-1.3) Estimated GFR (Cockcroft-Gault) 111.2 BUN/Creatinine Ratio 20 (6-20) Glucose Level 92 mg/dL (70-99) Calcium Level 7.5 mg/dL (8.5-10.1) Phosphorus Level 1.6 mg/dL (2.6-4.7) Magnesium Level 1.5 mg/dL (1.8-2.4) Total Bilirubin 0.6 mg/dL (0.2-1.0) Aspartate Amino Transf (AST/SGOT) 31 U/L (15-37) Alanine Aminotransferase (ALT/SGPT) 17 U/L (16-63) Alkaline Phosphatase 98 U/L (46-116) Total Protein 5.4 g/dL (6.4-8.2) Albumin 1.7 g/dL (3.4-5.0) Albumin/Globulin Ratio 0.5 (1.0-1.7) Microbiology 11/12/20 Blood Culture - Final, Complete 11/12/20 Urine Culture - Final, Complete Medications Current Medications Piperacillin Sod/ Tazobactam Sod 3.375 gm/Sodium Chloride 50 ml @ 100 mls/hr 1X ONCE IV Last administered on 11/12/20at 15:24; Start 11/12/20 at 15:30; Stop 11/12/20 at 15:59; Status DC Ondansetron HCl (Zofran) 4 mg PRN Q8HRS PRN IV NAUSEA/VOMITING; Start 11/12/20 at 16:00; Stop 11/13/20 at 13:36; Status DC Sodium Chloride 1,000 ml @ 75 mls/hr [id number] IV Last administered on 11/13/20at 13:00; Start 11/12/20 at 16:00; Stop 11/13/20 at 15:59; Status DC Piperacillin Sod/ Tazobactam Sod (Zosyn Per Pharmacy) 1 each PRN DAILY PRN MC SEE COMMENTS; Start 11/12/20 at 16:00 Piperacillin Sod/ Tazobactam Sod 3.375 gm/Sodium Chloride 50 ml @ 100 mls/hr Q6 HRS IV Last administered on 11/14/20at 11:04; Start 11/13/20 at 00:00 Pantoprazole Sodium (PROTONIX VIAL for IV PUSH) 40 mg DAILYAC IVP Last administered on 11/12/20at 17:48; Start 11/12/20 at 17:00; Stop 11/13/20 at 10:43; Status DC Sodium Bicarbonate 50 meq/Sodium Chloride 1,050 ml @ 125 mls/hr Q8H24M IV Last administered on 11/13/20at 06:09; Start 11/12/20 at 18:00; Stop 11/13/20 at 10:47; Status DC Sodium Chloride (Normal Saline Flush) 3 ml QSHIFT PRN IV AFTER MEDS AND BLOOD DRAWS; Start 11/12/20 at 17:15 Ondansetron HCl (Zofran) 4 mg PRN Q4HRS PRN IV NAUSEA/VOMITING; Start 11/12/20 at 17:15 Acetaminophen (Tylenol) 650 mg PRN Q4HRS PRN PO TEMP OVER 100.4F OR MILD PAIN; Start 11/12/20 at 17:15 Docusate Sodium (Colace) 100 mg PRN BID PRN PO HARD STOOLS; Start 11/12/20 at 17:15 Albuterol Sulfate (Ventolin Neb Soln) 2.5 mg PRN Q4HRS PRN NEB SHORTNESS OF BREATH; Start 11/12/20 at 17:15 Guaifenesin (Robitussin) 200 mg PRN Q4HRS PRN PO COUGH; Start 11/12/20 at 17:15 Lorazepam (Ativan) 0.5 mg PRN Q4HRS PRN PO ANXIETY / AGITATION; Start 11/12/20 at 17:15 Lorazepam (Ativan Inj) 2 mg PRN Q4HRS PRN IV ANXIETY / AGITATION; Start at 17:15 Enoxaparin Sodium (Lovenox 40mg Syringe) 40 mg Q24H SQ Last administered on 11/13/20at 21:32; Start 11/12/20 at 21:00 Piperacillin Sod/ Tazobactam Sod 3.375 gm/Sodium Chloride 50 ml @ 100 mls/hr Q6HRS IV ; Start 11/12/20 at 18:00; Status UNV Potassium Chloride/Water 100 ml @ 100 mls/hr Q1H IV Last administered on 11/13/20at 03:02; Start 11/13/20 at 01:00; Stop 11/13/20 at 03:59; Status DC Pantoprazole Sodium (Protonix) 40 mg DAILYAC PO Last administered on 11/14/20at 08:29; Start 11/13/20 at 11:30 Daptomycin 340 mg/ Sodium Chloride 50 ml @ 100 mls/hr Q24H IV Last administered on 11/14/20at 12:24; Start 11/13/20 at 12:00 Potassium Chloride (Klor-Con) 20 meq BID PO Last administered on 11/14/20at 12:24; Start 11/14/20 at 12:00 Vitals/I & O Vital Sign - Last 24 Hours 11/13/20 11/13/20 11/13/20 11/13/20 15:00 19:20 19:55 23:20 Temp 98.1 98.0 98.4 98.1 98.0 98.4 Pulse 75 71 75 Resp 18 18 18 B/P (MAP) 99/57 (71) 102/59 (73) 105/55 (72) Pulse Ox 100 97 99 O2 Delivery Room Air Room Air Room Air Room Air 11/14/20 11/14/20 11/14/20 11/14/20 03:40 06:05 06:20 07:00 Temp 97.5 98.1 98.1 98.0 97.5 98.1 98.1 98.0 Pulse 60 66 62 62 Resp 18 18 18 18 B/P (MAP) 95/56 (69) 95/53 95/54 90/52 (65) Pulse Ox 98 95 O2 Delivery Room Air Room Air 11/14/20 11/14/20 11/14/20 11/14/20 07:05 08:00 08:05 09:05 Temp 98.0 97.9 98.0 98.0 97.9 98.0 Pulse 75 72 80 Resp 18 16 18 B/P (MAP) 90/52 98/56 87/57 O2 Delivery Room Air 11/14/20 11/14/20 09:25 10:49 Temp 97.9 98.2 97.9 98.2 Pulse 81 68 Resp 16 18 B/P (MAP) 101/59 92/55 (67) Pulse Ox 96 O2 Delivery Room Air Intake and Output 11/13/20 11/13/20 11/14/20 15:00 23:00 07:00 Intake Total 575 ml 1950 ml 440 ml Output Total 600 ml 0 ml Balance -25 ml 1950 ml 440 ml Justifications for Admission General Conditions Poss tachycardia?: Yes Justification for admission: Patient has tachycardia (> 100 beats per minute) which is not readily corrected by appropriate treatment within 12 to 24 hours. SEPSIS, PROFOUND ANEMIA, GI BLEED Other Justification Nutrition Consultation Dietary Evaluation: Recommendations by RD: Dietary education by RD, Increase Calorie Intake, Protein supplementation Comments: Continue w/regular diet, honor food preferences, provide snacks as requested REC Ensure (chocolate or vanilla) TID Expected Outcomes/Goals: PO intake to meet >75% est needs Interpretation of weight loss: >5% in 1 month Malnutrition Findings: Body Fat Depletion (Non Severe: Mod to Severe Weight Status: Underweight HAIM AUSTIN MD Nov 14, 2020 14:20
[2020-11-14] MEDS: ENOXAPARIN 40 MG/0.4 ML SYRINGE. SQ SCH (20:41)
[2020-11-15 03:03] VITALS: BP 103/61
[2020-11-15] MEDS: PIPERACILLIN/TAZOBACTAM 3.375 GM in IV NORMAL SALINE 50ML 50 ML IV SCH ×4 (05:48→23:45)
[2020-11-15 07:00] VITALS: BP 86/49
[2020-11-15] MEDS: POTASSIUM CHLORIDE 20 MEQ TABLET.ER. PO SCH ×2 (08:26→20:27)
[2020-11-15] MEDS: PANTOPRAZOLE 40 MG TABLET.DR. PO SCH (08:26)
--- NOTE | 2020-11-15 09:46 | PDOC ---
Infectious Disease Note Subjective: Subjective Patient without complaints Status post blood transfusion 1 unit yesterday Denies fever, nausea, vomiting, shortness of breath, diarrhea, abdominal pain, rash Otherwise as above Vital Signs: Vital Signs Vital Signs Date Time Temp Pulse Resp B/P (MAP) Pulse Ox O2 Delivery O2 Flow Rate FiO2 11/15/20 08:19 97 Room Air 11/15/20 07:00 97.7 59 18 86/49 (61) 97.7 Physical Exam: PHYSICAL EXAM GENERAL: Alert, oriented, thin, malnourished male in no acute distress. HEENT: Normocephalic, atraumatic. Poor dentition. No thrush. NECK: Supple, no JVD, no lymphadenopathy. LUNGS: Clear bilaterally. No wheezing. HEART: S1, S2. No gallops or murmurs. ABDOMEN: Soft. Mass felt in the epigastric and right upper quadrant. No pulsatile mass noted. Bowel sounds present. No guarding, no rigidity. Chest wall Port-A-Cath site, right chest wall, looks clean. EXTREMITIES: No edema, no cyanosis. DERMATOLOGIC: Warm and dry. No generalized rash. NEUROLOGIC: Alert and oriented x 3, grossly nonfocal. PSYCHIATRIC: Cooperative, appropriate mood and affect. Medications: Inpatient Meds: Current Medications Medications (Trade) Dose Ordered Sig/Ric Start Time Stop Time Status Last Admin Dose Admin Acetaminophen (Tylenol) 650 mg PRN Q4HRS PRN 11/12/20 17:15 Albuterol Sulfate (Ventolin Neb Soln) 2.5 mg PRN Q4HRS PRN 11/12/20 17:15 Daptomycin 340 mg/ Sodium Chloride 50 ml @ 100 mls/hr Q24H 11/13/20 12:00 11/14/20 12:24 100 MLS/HR Docusate Sodium (Colace) 100 mg PRN BID PRN 11/12/20 17:15 Enoxaparin Sodium (Lovenox 40mg Syringe) 40 mg Q24H 11/12/20 21:00 11/14/20 20:41 40 MG Guaifenesin (Robitussin) 200 mg PRN Q4HRS PRN 11/12/20 17:15 Lorazepam (Ativan Inj) 2 mg PRN Q4HRS PRN 11/12/20 17:15 Lorazepam (Ativan) 0.5 mg PRN Q4HRS PRN 11/12/20 17:15 Ondansetron HCl (Zofran) 4 mg PRN Q4HRS PRN 11/12/20 17:15 Pantoprazole Sodium (PROTONIX VIAL for IV PUSH) 40 mg DAILYAC 11/12/20 17:00 11/13/20 10:43 DC 11/12/20 17:48 40 MG Pantoprazole Sodium (Protonix) 40 mg DAILYAC 11/13/20 11:30 11/15/20 08:26 40 MG Piperacillin Sod/ Tazobactam Sod (Zosyn Per Pharmacy) 1 each PRN DAILY PRN 11/12/20 16:00 Piperacillin Sod/ Tazobactam Sod 3.375 gm/Sodium Chloride 50 ml @ 100 mls/hr Q6HRS 11/12/20 18:00 UNV Potassium Chloride/Water 100 ml @ 100 mls/hr Q1H 11/13/20 01:00 11/13/20 03:59 DC 11/13/20 03:02 100 MLS/HR Potassium Chloride (Klor-Con) 20 meq BID 11/14/20 12:00 11/15/20 08:26 20 MEQ Sodium Bicarbonate 50 meq/Sodium Chloride 1,050 ml @ 125 mls/hr Q8H24M 11/12/20 18:00 11/13/20 10:47 DC 11/13/20 06:09 125 MLS/HR Sodium Chloride (Normal Saline Flush) 3 ml QSHIFT PRN 11/12/20 17:15 Labs: Lab Laboratory Tests Test 11/14/20 15:10 Hemoglobin 8.4 g/dL (13.0-17.5) Micro RUN DATE: 11/15/20 [facility] *LIVE* PAGE 1 RUN TIME: 826 Specimen Inquiry PATIENT: MISTY BETH ACCT: [id number] LOC: [address] [place] [address] U: [id number] AGE/SX: 70/M ROOM: 204 RE11/12/[address]: VALDO JOHANSEN MD : 1950 BED: 1 DIS: STATUS: ADM IN TLOC: SPEC #: [id number] ARTHUR: 11/12/20 STATUS: RES REQ #: [id number] RECD: 11/12/[address]: VALDO JOHANSEN MD SOURCE: BLOOD ENTR: 11/14/20 [facility] DR: DEANNA LYNCH MD SPDESC: PRINCE CUNNINGHAM MD, VENU S MD PHAN, PETER T DO SHUNYAKOV,HAIM ROMERO MD, MD ORDERED: CATY GOLDEN - LC Procedure Result BLOOD CULTURE LC Preliminary Preliminary FINAL ID= [STAPHYLOCOCCUS CAPITIS] STAPHYLOCOCCUS CAPITIS Unless otherwise specified, Testing Performed by: [facility] [address] [place] [address] For Inquires, the Physician may contact the Microbiology department at [phone] Objective: Assessment: 1. Sepsis. 2. Gram-positive cocci bacteremia,Staph capitis, present on admission 3. Severe anemia, status post 3 units of packed RBC. 4. Leukocytosis, likely reactive. Improved 5. Hyponatremia and hypokalemia. 6. 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 7. Port-A-Cath placement, right chest wall. Site appears clean 8. Weight loss of 20 pounds in the last 4 weeks. 9. Protein-calorie malnutrition. Plan: Plan of Care 1. Continue Zosyn. 2. cont daptomycin 3. f/u Repeat blood cultures from Port-A-Cath and periphery are negative from November 14, 2020 4. Monitor labs in am CK pending from today 5. Continue supportive care. Discussed with nursing staff DEANNA LYNCH MD Nov 15, 2020 09:46
[2020-11-15 10:46] VITALS: BP 114/75
[2020-11-15 11:42] LABS: BASO % 1 % (0-3); EOS # 0.1 x10^3/uL (0.0-0.7); EOS % 1 % (0-3); HEMATOCRIT 26.4 % (39.0-53.0); HEMOGLOBIN 8.5 g/dL (13.0-17.5); LYMPH # 0.8 x10^3/uL (1.0-4.8); LYMPH % 9 % (24-48); MEAN CORPUSCULAR HEMOGLOBIN 26 pg (25-35); MEAN CORPUSCULAR HGB CONC 32 g/dL (31-37); MEAN CORPUSCULAR VOLUME 80 fL (79-100); MONO # 0.7 x10^3/uL (0.0-1.1); MONO % 9 % (0-9); NEUT # 6.7 x10^3/uL (1.8-7.7); NEUT % 80 % (31-73); PLATELET COUNT 307 x10^3/uL (140-400); RED CELL DISTRIBUTION WIDTH 18.7 % (11.5-14.5); WHITE BLOOD COUNT 8.4 x10^3/uL (4.0-11.0)
[2020-11-15 11:58] LABS: ALBUMIN 1.9 g/dL (3.4-5.0); ALBUMIN/GLOBULIN RATIO 0.5 (1.0-1.7); CALCIUM 7.7 mg/dL (8.5-10.1); CREATININE 0.7 mg/dL (0.7-1.3); GFR 111.2; POTASSIUM 4.4 mmol/L (3.5-5.1); TOTAL BILIRUBIN 0.3 mg/dL (0.2-1.0); TOTAL PROTEIN 6.1 g/dL (6.4-8.2)
[2020-11-15] MEDS ORDERED: MAGNESIUM SULFATE 2GM 50 ML IV ONE (13:00)
[2020-11-15] MEDS: DAPTOmycin (GENERIC) IVPB 340 MG in IV NORMAL SALINE 50ML 50 ML IV SCH (14:15)
[2020-11-15 14:26] VITALS: BP 105/59
--- NOTE | 2020-11-15 15:33 | PDOC ---
GENERAL General: Patient examined chart reviewed discussed with nursing. Patient is a better spirits today less anxious sitting up watching what she is getting. He is very motivated to do well at home and has many questions about his nutrition plan. He is interested in speaking with the service tester prior to discharge. I will go ahead and consult them for tomorrow morning. He is hoping for discharge early tomorrow due to his brother's schedule. We will need to firm up the antibiotic plan prior to discharge. Labs ordered for the morning. Hemoglobin is stable today. We did replace his magnesium. Problems: (1) Liver cancer (2) Leukocytosis VITAL SIGNS Vital Signs/I&O: Vital Signs Date Time Temp Pulse Resp B/P (MAP) Pulse Ox O2 Delivery O2 Flow Rate FiO2 11/15/20 14:26 98.0 65 18 105/59 (74) 92 Room Air 98.0 I & O 11/14/20 11/14/20 11/15/20 15:00 23:00 07:00 Intake Total 375 ml 500 ml 250 ml Balance 375 ml 500 ml 250 ml In general the patient is pleasant perkier today alert and oriented x3 no acute distress Chest is clear to auscultation Heart S1-S2 normal regular rate and rhythm no murmurs or gallops are noted Abdomen soft nontender nondistended no masses organomegaly noted Extremity exam is unremarkable for acute abnormality ALLERGIES Allergies: Allergies Coded Allergies Type Severity Reaction Last Updated Verified No Known Drug Allergies 11/12/20 No MEDS Medications: Current Medications Medications (Trade) Dose Ordered Sig/Ric Start Time Stop Time Status Last Admin Dose Admin Acetaminophen (Tylenol) 650 mg PRN Q4HRS PRN 11/12/20 17:15 Albuterol Sulfate (Ventolin Neb Soln) 2.5 mg PRN Q4HRS PRN 11/12/20 17:15 Daptomycin 340 mg/ Sodium Chloride 50 ml @ 100 mls/hr Q24H 11/13/20 12:00 11/15/20 14:15 Docusate Sodium (Colace) 100 mg PRN BID PRN 11/12/20 17:15 Enoxaparin Sodium (Lovenox 40mg Syringe) 40 mg Q24H 11/12/20 21:00 11/14/20 20:41 Guaifenesin (Robitussin) 200 mg PRN Q4HRS PRN 11/12/20 17:15 Lorazepam (Ativan Inj) 2 mg PRN Q4HRS PRN 11/12/20 17:15 Lorazepam (Ativan) 0.5 mg PRN Q4HRS PRN 11/12/20 17:15 Magnesium Sulfate 50 ml @ 25 mls/hr 1X ONCE 11/15/20 13:00 11/15/20 14:59 DC 11/15/20 14:16 Ondansetron HCl (Zofran) 4 mg PRN Q4HRS PRN 11/12/20 17:15 Pantoprazole Sodium (PROTONIX VIAL for IV PUSH) 40 mg DAILYAC 11/12/20 17:00 11/13/20 10:43 DC 11/12/20 17:48 Pantoprazole Sodium (Protonix) 40 mg DAILYAC 11/13/20 11:30 11/15/20 08:26 Piperacillin Sod/ Tazobactam Sod (Zosyn Per Pharmacy) 1 each PRN DAILY PRN 11/12/20 16:00 Piperacillin Sod/ Tazobactam Sod 3.375 gm/Sodium Chloride 50 ml @ 100 mls/hr Q6HRS 11/12/20 18:00 UNV Potassium Chloride/Water 100 ml @ 100 mls/hr Q1H 11/13/20 01:00 11/13/20 03:59 DC 11/13/20 03:02 Potassium Chloride (Klor-Con) 20 meq BID 11/14/20 12:00 11/15/20 08:26 Sodium Bicarbonate 50 meq/Sodium Chloride 1,050 ml @ 125 mls/hr Q8H24M 11/12/20 18:00 11/13/20 10:47 DC 11/13/20 06:09 Sodium Chloride (Normal Saline Flush) 3 ml QSHIFT PRN 11/12/20 17:15 Current Medications Medications (Trade) Dose Ordered Sig/Ric Route PRN Reason Start Time Stop Time Status Last Admin Dose Admin Magnesium Sulfate 50 ml @ 25 mls/hr 1X ONCE IV 11/15/20 13:00 11/15/20 14:59 DC 11/15/20 14:16 LAB Lab: Laboratory Tests Test 11/15/20 11:25 White Blood Count 8.4 x10^3/uL (4.0-11.0) Red Blood Count 3.30 x10^6/uL (4.30-5.70) L Hemoglobin 8.5 g/dL (13.0-17.5) L Hematocrit 26.4 % (39.0-53.0) L Mean Corpuscular Volume 80 fL (79-100) Mean Corpuscular Hemoglobin 26 pg (25-35) Mean Corpuscular Hemoglobin Concent 32 g/dL (31-37) Red Cell Distribution Width 18.7 % (11.5-14.5) H Platelet Count 307 x10^3/uL (140-400) Neutrophils (%) (Auto) 80 % (31-73) H Lymphocytes (%) (Auto) 9 % (24-48) L Monocytes (%) (Auto) 9 % (0-9) Eosinophils (%) (Auto) 1 % (0-3) Basophils (%) (Auto) 1 % (0-3) Neutrophils # (Auto) 6.7 x10^3/uL (1.8-7.7) Lymphocytes # (Auto) 0.8 x10^3/uL (1.0-4.8) L Monocytes # (Auto) 0.7 x10^3/uL (0.0-1.1) Eosinophils # (Auto) 0.1 x10^3/uL (0.0-0.7) Basophils # (Auto) 0.0 x10^3/uL (0.0-0.2) Sodium Level 135 mmol/L (136-145) L Potassium Level 4.4 mmol/L (3.5-5.1) Chloride Level 106 mmol/L (98-107) Carbon Dioxide Level 17 mmol/L (21-32) L Anion Gap 12 (6-14) Blood Urea Nitrogen 10 mg/dL (8-26) Creatinine 0.7 mg/dL (0.7-1.3) Estimated GFR (Cockcroft-Gault) 111.2 BUN/Creatinine Ratio 14 (6-20) Glucose Level 100 mg/dL (70-99) H Calcium Level 7.7 mg/dL (8.5-10.1) L Magnesium Level 1.6 mg/dL (1.8-2.4) L Total Bilirubin 0.3 mg/dL (0.2-1.0) Aspartate Amino Transferase (AST) 42 U/L (15-37) H Alanine Aminotransferase (ALT) 21 U/L (16-63) Alkaline Phosphatase 101 U/L (46-116) Creatine Kinase 47 U/L (39-308) Total Protein 6.1 g/dL (6.4-8.2) L Albumin 1.9 g/dL (3.4-5.0) L Albumin/Globulin Ratio 0.5 (1.0-1.7) L Laboratory Tests 11/15/20 11:25 Laboratory Tests 11/15/20 11:25 ASSESSMENT & PLAN A&P Plan as noted above This note was created using [employer] and may have omissions and/or errors due to the nature of real-time voice regulatory coordinator. Justifications for Admission General Conditions Poss tachycardia?: Yes Justification for admission: Patient has tachycardia (> 100 beats per minute) which is not readily corrected by appropriate treatment within 12 to 24 hours. SEPSIS, PROFOUND ANEMIA, GI BLEED Other Justification Nutrition Consultation Dietary Evaluation: Recommendations by RD: Dietary education by RD, Increase Calorie Intake, Protein supplementation Comments: Continue w/regular diet, honor food preferences, provide snacks as requested REC Ensure (chocolate or vanilla) TID Expected Outcomes/Goals: PO intake to meet >75% est needs Interpretation of weight loss: >5% in 1 month Malnutrition Findings: Body Fat Depletion (Non Severe: Mod to Severe Weight Status: Underweight ARIANNE MURDOCK MD Nov 15, 2020 15:33
[2020-11-15 19:00] VITALS: BP 102/72
[2020-11-15] MEDS: LACTOBACILLUS RHAMNOSUS GG 1 CAPSULE. PO SCH (20:28)
[2020-11-15] MEDS: ENOXAPARIN 40 MG/0.4 ML SYRINGE. SQ SCH (20:28)
[2020-11-15 22:53] VITALS: BP 93/58
[2020-11-16 02:58] VITALS: BP 99/56
[2020-11-16] MEDS: PIPERACILLIN/TAZOBACTAM 3.375 GM in IV NORMAL SALINE 50ML 50 ML IV SCH ×2 (05:12→12:54)
--- NOTE | 2020-11-16 05:46 | NUR ---
Pt refused Monday central line dressing change. Central line dressing changes are normally done on Sundays. He was accessed on 11/12/20, so it had only been 3 days on Monday. He states he thinks he will leave Monday or the next day so he would like to refuse the dressing change as it has not been a week elapsed and he will dc soon and the line will then be de-accessed. Education done with pt about infection prevention, pt verbalized understanding.
[2020-11-16 07:00] VITALS: BP_SYST 144; BP_SYST 90; BP_DIAS 50; BP_DIAS 72
--- NOTE | 2020-11-16 08:09 | PDOC ---
Infectious Disease Note Subjective: Subjective Patient without complaints Denies fever, nausea, vomiting, shortness of breath, diarrhea, abdominal pain, rash Otherwise as above Vital Signs: Vital Signs Vital Signs Date Time Temp Pulse Resp B/P (MAP) Pulse Ox O2 Delivery O2 Flow Rate FiO2 11/16/20 02:58 98.4 57 18 99/56 (70) 98 Room Air 98.4 Physical Exam: PHYSICAL EXAM GENERAL: Alert, oriented, thin, malnourished male in no acute distress. HEENT: Normocephalic, atraumatic. Poor dentition. No thrush. NECK: Supple, no JVD, no lymphadenopathy. LUNGS: Clear bilaterally. No wheezing. HEART: S1, S2. No gallops or murmurs. ABDOMEN: Soft. Mass felt in the epigastric and right upper quadrant. No pulsatile mass noted. Bowel sounds present. No guarding, no rigidity. Chest wall Port-A-Cath site, right chest wall, looks clean. EXTREMITIES: No edema, no cyanosis. DERMATOLOGIC: Warm and dry. No generalized rash. NEUROLOGIC: Alert and oriented x 3, grossly nonfocal. PSYCHIATRIC: Cooperative, appropriate mood and affect. Medications: Inpatient Meds: Current Medications Medications (Trade) Dose Ordered Sig/Ric Start Time Stop Time Status Last Admin Dose Admin Acetaminophen (Tylenol) 650 mg PRN Q4HRS PRN 11/12/20 17:15 Albuterol Sulfate (Ventolin Neb Soln) 2.5 mg PRN Q4HRS PRN 11/12/20 17:15 Daptomycin 340 mg/ Sodium Chloride 50 ml @ 100 mls/hr Q24H 11/13/20 12:00 11/15/20 14:15 100 MLS/HR Docusate Sodium (Colace) 100 mg PRN BID PRN 11/12/20 17:15 Enoxaparin Sodium (Lovenox 40mg Syringe) 40 mg Q24H 11/12/20 21:00 11/15/20 20:28 40 MG Guaifenesin (Robitussin) 200 mg PRN Q4HRS PRN 11/12/20 17:15 Lactobacillus Rhamnosus (Culturelle) 1 cap BID 11/15/20 21:00 11/15/20 20:28 1 CAP Lorazepam (Ativan Inj) 2 mg PRN Q4HRS PRN 11/12/20 17:15 Lorazepam (Ativan) 0.5 mg PRN Q4HRS PRN 11/12/20 17:15 Magnesium Sulfate 50 ml @ 25 mls/hr 1X ONCE 11/15/20 13:00 11/15/20 14:59 DC 11/15/20 14:16 25 MLS/HR Ondansetron HCl (Zofran) 4 mg PRN Q4HRS PRN 11/12/20 17:15 Pantoprazole Sodium (PROTONIX VIAL for IV PUSH) 40 mg DAILYAC 11/12/20 17:00 11/13/20 10:43 DC 11/12/20 17:48 40 MG Pantoprazole Sodium (Protonix) 40 mg DAILYAC 11/13/20 11:30 11/15/20 08:26 40 MG Piperacillin Sod/ Tazobactam Sod (Zosyn Per Pharmacy) 1 each PRN DAILY PRN 11/12/20 16:00 Piperacillin Sod/ Tazobactam Sod 3.375 gm/Sodium Chloride 50 ml @ 100 mls/hr Q6HRS 11/12/20 18:00 UNV Potassium Chloride/Water 100 ml @ 100 mls/hr Q1H 11/13/20 01:00 11/13/20 03:59 DC 11/13/20 03:02 100 MLS/HR Potassium Chloride (Klor-Con) 20 meq BID 11/14/20 12:00 11/15/20 20:27 20 MEQ Sodium Bicarbonate 50 meq/Sodium Chloride 1,050 ml @ 125 mls/hr Q8H24M 11/12/20 18:00 11/13/20 10:47 DC 11/13/20 06:09 125 MLS/HR Sodium Chloride (Normal Saline Flush) 3 ml QSHIFT PRN 11/12/20 17:15 Labs: Lab Laboratory Tests Test 11/15/20 11:25 White Blood Count 8.4 x10^3/uL (4.0-11.0) Red Blood Count 3.30 x10^6/uL (4.30-5.70) Hemoglobin 8.5 g/dL (13.0-17.5) Hematocrit 26.4 % (39.0-53.0) Mean Corpuscular Volume 80 fL (79-100) Mean Corpuscular Hemoglobin 26 pg (25-35) Mean Corpuscular Hemoglobin Concent 32 g/dL (31-37) Red Cell Distribution Width 18.7 % (11.5-14.5) Platelet Count 307 x10^3/uL (140-400) Neutrophils (%) (Auto) 80 % (31-73) Lymphocytes (%) (Auto) 9 % (24-48) Monocytes (%) (Auto) 9 % (0-9) Eosinophils (%) (Auto) 1 % (0-3) Basophils (%) (Auto) 1 % (0-3) Neutrophils # (Auto) 6.7 x10^3/uL (1.8-7.7) Lymphocytes # (Auto) 0.8 x10^3/uL (1.0-4.8) Monocytes # (Auto) 0.7 x10^3/uL (0.0-1.1) Eosinophils # (Auto) 0.1 x10^3/uL (0.0-0.7) Basophils # (Auto) 0.0 x10^3/uL (0.0-0.2) Sodium Level 135 mmol/L (136-145) Potassium Level 4.4 mmol/L (3.5-5.1) Chloride Level 106 mmol/L (98-107) Carbon Dioxide Level 17 mmol/L (21-32) Anion Gap 12 (6-14) Blood Urea Nitrogen 10 mg/dL (8-26) Creatinine 0.7 mg/dL (0.7-1.3) Estimated GFR (Cockcroft-Gault) 111.2 BUN/Creatinine Ratio 14 (6-20) Glucose Level 100 mg/dL (70-99) Calcium Level 7.7 mg/dL (8.5-10.1) Magnesium Level 1.6 mg/dL (1.8-2.4) Total Bilirubin 0.3 mg/dL (0.2-1.0) Aspartate Amino Transf (AST/SGOT) 42 U/L (15-37) Alanine Aminotransferase (ALT/SGPT) 21 U/L (16-63) Alkaline Phosphatase 101 U/L (46-116) Creatine Kinase 47 U/L (39-308) Total Protein 6.1 g/dL (6.4-8.2) Albumin 1.9 g/dL (3.4-5.0) Albumin/Globulin Ratio 0.5 (1.0-1.7) Micro RUN DATE: 11/15/20 [facility] LAB *LIVE* PAGE 1 RUN TIME: 826 Specimen Inquiry PATIENT: MISTY BETH ACCT: [id number] LOC: [address] [place] [address] U: [id number] AGE/SX: 70/M ROOM: 204 RE11/12/[address]: VALDO JOHANSEN MD : 1950 BED: 1 DIS: STATUS: ADM IN TLOC: SPEC #: [id number] ARTHUR: 11/12/20 STATUS: RES REQ #: [id number] RECD: 11/12/[address]: VALDO JOHANSEN MD SOURCE: BLOOD ENTR: 11/14/[address]: DEANNA LYNCH [facility] MD,ARIANA GIANG,DIMA ALEX MD,HAIM Mancera MD ORDERED: BLD CULT - LC Procedure Result BLOOD CULTURE LC Preliminary Preliminary FINAL ID= [STAPHYLOCOCCUS CAPITIS] STAPHYLOCOCCUS CAPITIS Unless otherwise specified, Testing Performed by: [address] [address] For Inquires, the Physician may contact the Microbiology department at [phone] Objective: Assessment: 1. Sepsis. 2. Gram-positive cocci bacteremia,2/4 bottles ,Staph capitis, present on admission 3. Severe anemia, status post PRBC transfusion 4. Leukocytosis, likely reactive. Improved 5. Hyponatremia and hypokalemia. 6. History of biliary neoplasm with extensive workup and surgery at [facility]. 7. Port-A-Cath placement, right chest wall. Site appears clean 8. Weight loss of 20 pounds in the last 4 weeks. 9. Protein-calorie malnutrition. Plan: Plan of Care NIRMAL Zosyn Continue daptomycin pending susceptibilities for staph capitis in blood culture We will try to salvage Port-A-Cath When ready for discharge patient can be transitioned to Zyvox/Keflex for 10 days depending on susceptibility If repeat blood cultures are positive from November 14, Vincent cath will need removal Discussed with patient about above, he is agreeable with the plan Discussed with Dr. Tolbert Discussed with nursing staff DEANNA LYNCH MD Nov 16, 2020 08:09
[2020-11-16] MEDS: POTASSIUM CHLORIDE 20 MEQ TABLET.ER. PO SCH (08:41)
[2020-11-16] MEDS: PANTOPRAZOLE 40 MG TABLET.DR. PO SCH (08:41)
[2020-11-16] MEDS: LACTOBACILLUS RHAMNOSUS GG 1 CAPSULE. PO SCH (08:41)
[2020-11-16 08:50] LABS: BASO % 1 % (0-3); EOS # 0.2 x10^3/uL (0.0-0.7); EOS % 2 % (0-3); HEMATOCRIT 26.1 % (39.0-53.0); HEMOGLOBIN 8.4 g/dL (13.0-17.5); LYMPH # 0.9 x10^3/uL (1.0-4.8); LYMPH % 12 % (24-48); MEAN CORPUSCULAR HEMOGLOBIN 26 pg (25-35); MEAN CORPUSCULAR HGB CONC 32 g/dL (31-37); MEAN CORPUSCULAR VOLUME 81 fL (79-100); MONO # 0.7 x10^3/uL (0.0-1.1); MONO % 8 % (0-9); NEUT # 6.2 x10^3/uL (1.8-7.7); NEUT % 77 % (31-73); PLATELET COUNT 331 x10^3/uL (140-400); RED BLOOD COUNT 3.24 x10^6/uL (4.30-5.70); RED CELL DISTRIBUTION WIDTH 19.2 % (11.5-14.5)
[2020-11-16 09:07] LABS: ALBUMIN 1.8 g/dL (3.4-5.0); ALBUMIN/GLOBULIN RATIO 0.4 (1.0-1.7); CALCIUM 7.7 mg/dL (8.5-10.1); CREATININE 0.7 mg/dL (0.7-1.3); GFR 111.2; POTASSIUM 4.6 mmol/L (3.5-5.1); TOTAL BILIRUBIN 0.3 mg/dL (0.2-1.0); TOTAL PROTEIN 6.1 g/dL (6.4-8.2)
[2020-11-16] MEDS ORDERED: ACET325T9 PO (09:38)
[2020-11-16] MEDS ORDERED: LINE600T12 PO (09:38)
--- NOTE | 2020-11-16 09:41 | PDOC3 ---
Discharge Summary Visit Information Date of Admission: Nov 12, 2020 Date of Discharge: Nov 16, 2020 Final Diagnosis 1. Sepsis. 2. Gram-positive cocci bacteremia,2/4 bottles ,Staph capitis, present on admission 3. Severe anemia, status post PRBC transfusion 4. Leukocytosis, likely reactive. Improved 5. Hyponatremia and hypokalemia. acute renal failure, 6. History of biliary neoplasm with extensive workup and surgery at [facility]. 7. Port-A-Cath placement, right chest wall. Site appears clean 8. Weight loss of 20 pounds in the last 4 weeks. 9. severe Protein-calorie malnutrition. serum albumin under 2 Problems Medical Problems: (1) Anemia Status: Acute (2) Dehydration Status: Acute (3) Leukocytosis Status: Acute (4) Liver cancer Status: Acute Brief Hospital Course Allergies Allergies Coded Allergies Type Severity Reaction Last Updated Verified No Known Drug Allergies 11/12/20 No Vital Signs Vital Signs Date Time Temp Pulse Resp B/P (MAP) Pulse Ox O2 Delivery O2 Flow Rate FiO2 11/16/20 07:00 97.8 60 16 90/50 (63) 97 Room Air 97.8 Lab Results Laboratory Tests Test 11/14/20 15:10 11/15/20 11:25 11/16/20 08:05 Hemoglobin 8.4 g/dL (13.0-17.5) 8.5 g/dL (13.0-17.5) 8.4 g/dL (13.0-17.5) White Blood Count 8.4 x10^3/uL (4.0-11.0) 8.0 x10^3/uL (4.0-11.0) Red Blood Count 3.30 x10^6/uL (4.30-5.70) 3.24 x10^6/uL (4.30-5.70) Hematocrit 26.4 % (39.0-53.0) 26.1 % (39.0-53.0) Mean Corpuscular Volume 80 fL (79-100) 81 fL (79-100) Mean Corpuscular Hemoglobin 26 pg (25-35) 26 pg (25-35) Mean Corpuscular Hemoglobin Concent 32 g/dL (31-37) 32 g/dL (31-37) Red Cell Distribution Width 18.7 % (11.5-14.5) 19.2 % (11.5-14.5) Platelet Count 307 x10^3/uL (140-400) 331 x10^3/uL (140-400) Neutrophils (%) (Auto) 80 % (31-73) 77 % (31-73) Lymphocytes (%) (Auto) 9 % (24-48) 12 % (24-48) Monocytes (%) (Auto) 9 % (0-9) 8 % (0-9) Eosinophils (%) (Auto) 1 % (0-3) 2 % (0-3) Basophils (%) (Auto) 1 % (0-3) 1 % (0-3) Neutrophils # (Auto) 6.7 x10^3/uL (1.8-7.7) 6.2 x10^3/uL (1.8-7.7) Lymphocytes # (Auto) 0.8 x10^3/uL (1.0-4.8) 0.9 x10^3/uL (1.0-4.8) Monocytes # (Auto) 0.7 x10^3/uL (0.0-1.1) 0.7 x10^3/uL (0.0-1.1) Eosinophils # (Auto) 0.1 x10^3/uL (0.0-0.7) 0.2 x10^3/uL (0.0-0.7) Basophils # (Auto) 0.0 x10^3/uL (0.0-0.2) 0.0 x10^3/uL (0.0-0.2) Sodium Level 135 mmol/L (136-145) 135 mmol/L (136-145) Potassium Level 4.4 mmol/L (3.5-5.1) 4.6 mmol/L (3.5-5.1) Chloride Level 106 mmol/L (98-107) 105 mmol/L (98-107) Carbon Dioxide Level 17 mmol/L (21-32) 18 mmol/L (21-32) Anion Gap 12 (6-14) 12 (6-14) Blood Urea Nitrogen 10 mg/dL (8-26) 9 mg/dL (8-26) Creatinine 0.7 mg/dL (0.7-1.3) 0.7 mg/dL (0.7-1.3) Estimated GFR (Cockcroft-Gault) 111.2 111.2 BUN/Creatinine Ratio 14 (6-20) 13 (6-20) Glucose Level 100 mg/dL (70-99) 90 mg/dL (70-99) Calcium Level 7.7 mg/dL (8.5-10.1) 7.7 mg/dL (8.5-10.1) Magnesium Level 1.6 mg/dL (1.8-2.4) 1.7 mg/dL (1.8-2.4) Total Bilirubin 0.3 mg/dL (0.2-1.0) 0.3 mg/dL (0.2-1.0) Aspartate Amino Transf (AST/SGOT) 42 U/L (15-37) 41 U/L (15-37) Alanine Aminotransferase (ALT/SGPT) 21 U/L (16-63) 20 U/L (16-63) Alkaline Phosphatase 101 U/L (46-116) 95 U/L (46-116) Creatine Kinase 47 U/L (39-308) Total Protein 6.1 g/dL (6.4-8.2) 6.1 g/dL (6.4-8.2) Albumin 1.9 g/dL (3.4-5.0) 1.8 g/dL (3.4-5.0) Albumin/Globulin Ratio 0.5 (1.0-1.7) 0.4 (1.0-1.7) Laboratory Tests Test 11/15/20 11:25 11/16/20 08:05 White Blood Count 8.4 x10^3/uL (4.0-11.0) 8.0 x10^3/uL (4.0-11.0) Red Blood Count 3.30 x10^6/uL (4.30-5.70) 3.24 x10^6/uL (4.30-5.70) Hemoglobin 8.5 g/dL (13.0-17.5) 8.4 g/dL (13.0-17.5) Hematocrit 26.4 % (39.0-53.0) 26.1 % (39.0-53.0) Mean Corpuscular Volume 80 fL (79-100) 81 fL (79-100) Mean Corpuscular Hemoglobin 26 pg (25-35) 26 pg (25-35) Mean Corpuscular Hemoglobin Concent 32 g/dL (31-37) 32 g/dL (31-37) Red Cell Distribution Width 18.7 % (11.5-14.5) 19.2 % (11.5-14.5) Platelet Count 307 x10^3/uL (140-400) 331 x10^3/uL (140-400) Neutrophils (%) (Auto) 80 % (31-73) 77 % (31-73) Lymphocytes (%) (Auto) 9 % (24-48) 12 % (24-48) Monocytes (%) (Auto) 9 % (0-9) 8 % (0-9) Eosinophils (%) (Auto) 1 % (0-3) 2 % (0-3) Basophils (%) (Auto) 1 % (0-3) 1 % (0-3) Neutrophils # (Auto) 6.7 x10^3/uL (1.8-7.7) 6.2 x10^3/uL (1.8-7.7) Lymphocytes # (Auto) 0.8 x10^3/uL (1.0-4.8) 0.9 x10^3/uL (1.0-4.8) Monocytes # (Auto) 0.7 x10^3/uL (0.0-1.1) 0.7 x10^3/uL (0.0-1.1) Eosinophils # (Auto) 0.1 x10^3/uL (0.0-0.7) 0.2 x10^3/uL (0.0-0.7) Basophils # (Auto) 0.0 x10^3/uL (0.0-0.2) 0.0 x10^3/uL (0.0-0.2) Sodium Level 135 mmol/L (136-145) 135 mmol/L (136-145) Potassium Level 4.4 mmol/L (3.5-5.1) 4.6 mmol/L (3.5-5.1) Chloride Level 106 mmol/L (98-107) 105 mmol/L (98-107) Carbon Dioxide Level 17 mmol/L (21-32) 18 mmol/L (21-32) Anion Gap 12 (6-14) 12 (6-14) Blood Urea Nitrogen 10 mg/dL (8-26) 9 mg/dL (8-26) Creatinine 0.7 mg/dL (0.7-1.3) 0.7 mg/dL (0.7-1.3) Estimated GFR (Cockcroft-Gault) 111.2 111.2 BUN/Creatinine Ratio 14 (6-20) 13 (6-20) Glucose Level 100 mg/dL (70-99) 90 mg/dL (70-99) Calcium Level 7.7 mg/dL (8.5-10.1) 7.7 mg/dL (8.5-10.1) Magnesium Level 1.6 mg/dL (1.8-2.4) 1.7 mg/dL (1.8-2.4) Total Bilirubin 0.3 mg/dL (0.2-1.0) 0.3 mg/dL (0.2-1.0) Aspartate Amino Transf (AST/SGOT) 42 U/L (15-37) 41 U/L (15-37) Alanine Aminotransferase (ALT/SGPT) 21 U/L (16-63) 20 U/L (16-63) Alkaline Phosphatase 101 U/L (46-116) 95 U/L (46-116) Creatine Kinase 47 U/L (39-308) Total Protein 6.1 g/dL (6.4-8.2) 6.1 g/dL (6.4-8.2) Albumin 1.9 g/dL (3.4-5.0) 1.8 g/dL (3.4-5.0) Albumin/Globulin Ratio 0.5 (1.0-1.7) 0.4 (1.0-1.7) Brief Hospital Course Mr. Castorena is a 70 old male with liver cancer post resection, amdit with sepsis, anemia, blood cx grew staph capitis, was on zosyn, and dapto. plan DC on zyvox or keflex. will f/u with onc here. ID, gi and onc consulted Discharge Information Condition at Discharge: Improved Follow Up: Weeks Disposition/Orders: D/C to Home Patient Instructions Patient Instructions > 3 2minutes face to face discussion and with RN and Dr. Vang Justicifation of Admission Dx: Justifications for Admission: Justification of Admission Dx: Yes (sepsis) PATRICIA BURNS MD Nov 16, 2020 09:41
--- NOTE | 2020-11-16 10:14 | PDOC ---
Date of Service: DATE: 11/16/20 TIME: 10:09 Subjective: Subjective: Says his brother can pick him up around 5:30-6:00 this evening. Loose stools since "12 duodenal biopsies." Now maybe worse/different with antibiotics. Small stool after dinner last night, then another at 4:00 a.m. 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 Objective: Objective: D/w nurse - likely DC after culture results known - was told around noon. Going to send C Diff. Vital Signs: Vital Signs Date Time Temp Pulse Resp B/P (MAP) Pulse Ox O2 Delivery O2 Flow Rate FiO2 11/16/20 07:00 97.8 60 16 90/50 (63) 97 Room Air 97.8 Labs: Laboratory Tests Test 11/15/20 11:25 11/16/20 08:05 White Blood Count 8.4 x10^3/uL 8.0 x10^3/uL Red Blood Count 3.30 x10^6/uL 3.24 x10^6/uL Hemoglobin 8.5 g/dL 8.4 g/dL Hematocrit 26.4 % 26.1 % Mean Corpuscular Volume 80 fL 81 fL Mean Corpuscular Hemoglobin 26 pg 26 pg Mean Corpuscular Hemoglobin Concent 32 g/dL 32 g/dL Red Cell Distribution Width 18.7 % 19.2 % Platelet Count 307 x10^3/uL 331 x10^3/uL Neutrophils (%) (Auto) 80 % 77 % Lymphocytes (%) (Auto) 9 % 12 % Monocytes (%) (Auto) 9 % 8 % Eosinophils (%) (Auto) 1 % 2 % Basophils (%) (Auto) 1 % 1 % Neutrophils # (Auto) 6.7 x10^3/uL 6.2 x10^3/uL Lymphocytes # (Auto) 0.8 x10^3/uL 0.9 x10^3/uL Monocytes # (Auto) 0.7 x10^3/uL 0.7 x10^3/uL Eosinophils # (Auto) 0.1 x10^3/uL 0.2 x10^3/uL Basophils # (Auto) 0.0 x10^3/uL 0.0 x10^3/uL Sodium Level 135 mmol/L 135 mmol/L Potassium Level 4.4 mmol/L 4.6 mmol/L Chloride Level 106 mmol/L 105 mmol/L Carbon Dioxide Level 17 mmol/L 18 mmol/L Anion Gap 12 12 Blood Urea Nitrogen 10 mg/dL 9 mg/dL Creatinine 0.7 mg/dL 0.7 mg/dL Estimated GFR (Cockcroft-Gault) 111.2 111.2 BUN/Creatinine Ratio 14 13 Glucose Level 100 mg/dL 90 mg/dL Calcium Level 7.7 mg/dL 7.7 mg/dL Magnesium Level 1.6 mg/dL 1.7 mg/dL Total Bilirubin 0.3 mg/dL 0.3 mg/dL Aspartate Amino Transf (AST/SGOT) 42 U/L 41 U/L Alanine Aminotransferase (ALT/SGPT) 21 U/L 20 U/L Alkaline Phosphatase 101 U/L 95 U/L Creatine Kinase 47 U/L Total Protein 6.1 g/dL 6.1 g/dL Albumin 1.9 g/dL 1.8 g/dL Albumin/Globulin Ratio 0.5 0.4 PE: GEN: NAD LUNGS: CTAB HEART: RRR ABD: NABS, S/ND/NT NEURO/PSYCH: A & O 3 A/P: 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 DC per primary/ID. Follow-up w/ oncology as planned. Justicifation of Admission Dx: Justifications for Admission: Justification of Admission Dx: Yes (sepsis) JULIA ALMONTE Nov 16, 2020 10:14
[2020-11-16 11:00] VITALS: BP 101/62
--- NOTE | 2020-11-16 11:50 | NUR ---
SS following up with discharge planning. SS reviewed pt chart and discussed with pt RN. Pt is currently on room air. Pt on IV Daptomycin and IV Zosyn. PT/OT recommended home independent. Discharge order on the chart for home with self care. Dr. Vang awaiting on lab result to determine what antibiotic pt is needing. Possible need for transportation to home depending on time of discharge. SS will continue to follow for discharge planning.
[2020-11-16] MEDS: DAPTOmycin (GENERIC) IVPB 340 MG in IV NORMAL SALINE 50ML 50 ML IV SCH (13:48)
[2020-11-16 15:00] VITALS: BP 98/55
--- NOTE | 2020-11-16 15:53 | NUR ---
Note RD consult ordered regarding cancer nutrition education needs. Spoke w/pt on [facility]. Provided pt w/handouts from Nutrition Care Manual on ways to enhance nutrition w/cancer. Discussed importance of high protein, high calorie meals and snacks and reviewed some examples. Encouraged pt to eat multiple small meals/snacks to improve intake. Pt engaged in education and asked appropriate questions. Provided pt w/copy of this RDs card w/contact information. Also provided pt w/coupons for Ensure nutrition shakes; pt appreciative. All nutrition education questions answered at this time; RD available [phone] as needed. Will continue to monitor and follow up per schedule as able
[2020-11-16] MEDS ORDERED: HEPARIN PF 500 UNIT/5 ML DISP.SYRIN. IVP ONE (17:00)
--- NOTE | 2020-11-16 18:08 | NUR ---
Discharge Note: MISTY BETH Discharge instructions and discharge home medications reviewed with Patient and a copy given. All questions have been answered and understanding verbalized. The following instructions and handouts were given: stan cath heparinized and deaccessed, education on prescriptions, follow up monitor and appointments, high protein/calorie diet Discontinued lines and drains: deacessed port, discontinued peripheral IV, dressing clean, dry and intact. Patient discharged to home with brother via wheelchair
== END 2020-11-16 18:10 | disposition home or self-care (01) | DRG 871 ==
LOC: ER 14:16 → ED HOLD 15:40 → 2 NORTH 21:08
PROVIDERS: ADMIT Family Medicine; ATTEND Family Medicine
PROC: 30233N1 Transfusion of Nonautologous Red Blood Cells into Peripheral Vein, Percutaneous Approach (ICD-10-PCS; principal; 2020-11-12)
DX: A41.2 Sepsis due to unspecified staphylococcus (principal); E43 Unspecified severe protein-calorie malnutrition; N17.0 Acute kidney failure with tubular necrosis; E87.1 Hypo-osmolality and hyponatremia; E87.2 Acidosis; D50.9 Iron deficiency anemia, unspecified; E86.0 Dehydration; E87.6 Hypokalemia; K74.60 Unspecified cirrhosis of liver; E86.9 Volume depletion, unspecified; R73.9 Hyperglycemia, unspecified; R19.7 Diarrhea, unspecified; Z80.9 Family history of malignant neoplasm, unspecified; Z82.49 Family history of ischemic heart disease and other diseases of the circulatory system; Z85.05 Personal history of malignant neoplasm of liver; Z85.09 Personal history of malignant neoplasm of other digestive organs; Z90.49 Acquired absence of other specified parts of digestive tract
CPT/HCPCS: 36415; 71045; 76700; 80048; 80053; 82274; 82550; 83605; 83735; 83930; 83935; 84100; 84145; 84484; 85018; 85025; 85027; 86850; 86900; 86901; 86920; 87040; 87077; 87086; 87186; 87205; 87493; 94760; C9113; J0878; J1642; J1650; J2543; J3475; J3480; J3490; J7030; P9016; G0378

== ENCOUNTER → 2020-11-12 | Outpatient (CLI) | payer OTHER, MEDICARE ==
[~2020-11-12] MED LIST: PIPERACILLIN/TAZOBACTAM 3.375 GM in IV NORMAL SALINE 50ML 50 ML IV ONE
[2020-11-12 12:23] LABS: BASO # 0.1 x10^3/uL (0.0-0.2); BASO % 0 % (0-3); EOS % 0 % (0-3); LYMPH # 0.5 x10^3/uL (1.0-4.8); LYMPH % 2 % (24-48); MEAN CORPUSCULAR HEMOGLOBIN 23 pg (25-35); MEAN CORPUSCULAR HGB CONC 31 g/dL (31-37); MEAN CORPUSCULAR VOLUME 76 fL (79-100); MONO # 1.6 x10^3/uL (0.0-1.1); MONO % 6 % (0-9); NEUT # 26.4 x10^3/uL (1.8-7.7); NEUT % 93 % (31-73); PLATELET COUNT 451 x10^3/uL (140-400); RED BLOOD COUNT 2.69 x10^6/uL (4.30-5.70); RED CELL DISTRIBUTION WIDTH 20.4 % (11.5-14.5); WHITE BLOOD COUNT 28.5 x10^3/uL (4.0-11.0)
[2020-11-12 12:30] LABS: CALCIUM 8.1 mg/dL (8.5-10.1); CREATININE 1.5 mg/dL (0.7-1.3); GFR 46.1; POTASSIUM 3.6 mmol/L (3.5-5.1)
[2020-11-12 12:46] LABS: HEMOGLOBIN 6.2 g/dL (13.0-17.5)
[2020-11-12 12:47] LABS: HEMATOCRIT 20.3 % (39.0-53.0)
[2020-11-12 12:50] LABS: ALBUMIN 2.1 g/dL (3.4-5.0); ALBUMIN/GLOBULIN RATIO 0.4 (1.0-1.7); TOTAL BILIRUBIN 0.3 mg/dL (0.2-1.0)
[2020-11-12 12:57] LABS: FREE T4 1.27 ng/dL (0.76-1.46); THYROID STIM HORMONE (TSH) 2.231 uIU/mL (0.358-3.74)
[2020-11-12 13:55] LABS: % BANDS 14 % (0-9); % LYMPHS 2 % (24-48); % MONOS 6 % (0-10); % SEGS 78 % (35-66); ANISOCYTOSIS MOD; HYPOCHROMIA MOD; MICROCYTOSIS SLIGHT; OVALOCYTES PRESENT; PLT ESTIMATE INCREASED (ADEQUATE); POIKILOCYTOSIS SLIGHT; SCHISTOCYTES OCC
[2020-11-12 14:14] LABS: BILIRUBIN,URINE NEGATIVE (NEG); COLOR,URINE YELLOW; NITRITE,URINE NEGATIVE (NEG); PROTEIN,URINE 30 mg/dL (NEG-TRACE); UROBILINOGEN,URINE 0.2 mg/dL (0.2 mg/dL)
[2020-11-12 14:21] LABS: BACTERIA,URINE 0 /HPF (0-FEW); CLARITY,URINE HAZY; HYALINE CASTS, URINE FEW /HPF; RBC,URINE 0 /HPF (0-2); WBC,URINE OCC /HPF (0-4)
[2020-11-12 14:23] LABS: GRANULAR CASTS,URINE OCCASIONAL /HPF
--- NOTE | 2020-11-12 20:39 | PDOC1 ---
History and Physical Date of Admission Date of Admission DATE: 11/12/20 TIME: 20:39 Identification/Chief Complaint Chief Complaint [address] [place], [place] [address] PHYSICIAN SERVICES History & Physical : [id number] Signed Patient: MISTY CASTORENA Acct:[id number] Unit: [id number] : 1950 Loc: ER Room/Bed: Age/Sex: 70 / M ADM Status: REG ER ADM Date: 11/12/20 History and Physical Date of Admission Date of Admission DATE: 11/12/20 TIME: 15:46 Identification/Chief Complaint Chief Complaint weakness, severe anemia, 20lb weight loss IN 2 WEEKS, ANOREXIA History of Present Illness History of Present Illness Mr Castorena is a 70 yr old male with a history of hepatic cancer who has been followed by DR GARCIA, ONCOLOGY at [facility] Until recently. 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 [facility] records from are pending Past Medical History Past Medical History Past Medical History Past Medical History Past Medical History: Cancer, Other Additional Past Medical Histor: "POSSIBLE CANCER" Past Surgical History: Cholecystectomy, Other Additional Past Surgical Histo: MULTIPLE ABDOMINAL SURGERIES Smoking Status: Never Smoker Alcohol Use: Occasionally Additional Information: BEER, 1 TO 2 A WEEK FHX HTN Heme/Onc: Cancer Hepatobiliary: Cirrhosis Social History Smoke: No ALCOHOL: other (remote heavy use 6 pack a day until 2019) Current Problem List Problem List Problems Medical Problems: (1) Anemia Status: Acute (2) Dehydration Status: Acute (3) Leukocytosis Status: Acute (4) Liver cancer Status: Acute Current Medications Current Medications Current Medications Piperacillin Sod/ Tazobactam Sod 3.375 gm/Sodium Chloride 50 ml @ 100 mls/hr 1X ONCE IV Last administered on 11/12/20at 15:24; Start 11/12/20 at 15:30; Stop 11/12/20 at 15:59 Allergies Allergies: Coded Allergies: No Known Drug Allergies (Unverified , 11/12/20) ROS Review of System has lost 20 lbs in 2 weeks, approx 50 lbs in 1 year General: YES: Fatigue PSYCHOLOGICAL ROS: No: Anxiety, Behavioral Disorder, Concentration difficultie, Decreased libido, Depression, Disorientation, Hallucinations, Hostility, Irri tablity, Memory difficulties, Mood Swings, Obsessive thoughts, Physical abuse, Sexual abuse, Sleep disturbances, Suicidal ideation, Other Eyes: No Blurry vision, No Decreased vision, No Double vision, No Dry eyes, No Excessive tearing, No Eye Pain, No Itchy Eyes, No Loss of vision, No Photophobia, No Scotomata, No Uses contacts, No Uses glasses, No Other Hematological and Lymphatic: No: Bleeding Problems, Blood Clots, Blood Transfusions, Brusing, Night Sweats, Pallor, Swollen Lymph Nodes, Other ENDOCRINE: No: Breast Changes, Galactorrhea, Hair Pattern Changes, Hot Flashes, Malaise/lethargy, Mood Swings, Palpitations, Polydipsia/polyuria, Skin Changes, Temperature Intolerance, Unexpected Weight Changes, Other Respiratory: No: Cough, Hemoptysis, Orthopnea, Pleuritic Pain, Shortness of breath, SOB with excertion, Sputum Changes, Stridor, Tachypnea, Wheezing, Other Cardiovascular: No Chest Pain, No Palpitations, No Orthopnea, No Paroxysmal Noc. Dyspnea, No Edema, No Lt Headedness, No Other Gastrointestinal: Yes Other (marked weight loss, poor appetite); No Nausea, No Vomiting, No Abdominal Pain, No Diarrhea, No Constipation, No Melena, No Hematochezia Genitourinary: No Dysuria, No Frequency, No Incontinence, No Hematuria, No Retention, No Discharge, No Urgency, No Pain, No Flank Pain, No Other, No , No , No , No , No , No , No Musculoskeletal: No Gait Disturbance, No Joint Pain, No Joint Stiffness, No Joint Swelling, No Muscle Pain, No Muscular Weakness, No Pain In:, No Swelling In:, No Other Neurological: No Behavorial Changes, No Bowel/Bladder ControlChng, No Confusion, No Dizziness, No Gait Disturbance, No Headaches, No Impaired Coord/balance, No Memory Loss, No Numbness/Tingling, No Seizures, No Speech Problems, No Tremors, No Visual Changes, No Weakness, No Other Skin: No Dry Skin, No Eczema, No Hair Changes, No Lumps, No Mole Changes, No Mottling, No Nail Changes, No Pruritus, No Rash, No Skin Lesion Changes, No Other, No Acne Physical Exam Physical Exam very thin, alert appears malnourished, port in place Eyes: PERRLA, EOMI, conjunctiva normal, no discharge. [] Neck: Normal range of motion, no tenderness, supple, no stridor. [] Cardiovascular:Heart rate regular rhythm, no murmur [] Lungs & Thorax: Bilateral breath sounds clear to auscultation [] Abdomen: Bowel sounds normal, soft, no tenderness, no masses, no pulsatile masses. [] Skin: Warm, dry, no erythema, no rash. [] Back: No tenderness, no CVA tenderness. [] Extremities: No tenderness, no cyanosis, no clubbing, ROM intact, no edema. [] Neurologic: Alert and oriented X 3, normal motor function, normal sensory function, no focal deficits noted. [] Psychologic: Affect normal, judgment normal, mood normal. [] General: Alert, Oriented X3, Cooperative, No acute distress HEENT: Atraumatic, EOMI, Mucous membr. moist/pink Lungs: Normal air movement Heart: RRR, no thrills Abdomen: Soft, Other (thin) Rectal Exam: not examined PELVIC: Examination not indicated Extremities: No clubbing, No cyanosis Neuro: Normal speech, Cranial nerves 3-12 NL Psych/Mental Status: Mental status NL, Mood NL Vitals Vitals Vital Signs Date Time Temp Pulse Resp B/P (MAP) Pulse Ox O2 Delivery O2 Flow Rate FiO2 11/12/20 14:33 97.9 104 24 108/65 (79) 100 Room Air 97.9 Images Images EXAM: CHEST 1 VIEW History: Shortness of breath COMPARISON: None available. TECHNIQUE: Single portable radiograph of the chest FINDINGS: The cardiac silhouette is unremarkable. Right-sided Port-A-Cath is identified. Mild prominent bilateral interstitial lung markings could be chronic interstitial changes. IMPRESSION: 1. Mild prominent bilateral interstitial lung markings could be chronic in terstitial changes. Electronically signed by: Chele Floyd MD (11/12/2020 4:05 PM) [id number] DICTATED and SIGNED BY: CHELE LFOYD MD DATE: 11/12/20 [id number] VTE Prophylaxis Ordered VTE Prophylaxis Devices: Yes VTE Pharmacological Prophylaxi: Yes Assessment/Plan Assessment/Plan impression 1. Acute profound anemia, possible GI BLEEDING 2. severe hyponatremia, volume depleted 3. hx Hepatic cancer, type unknown 4. Mild prominent bilateral interstitial lung markings c/w chronic interstitial changes. 5. metabolic acidosis 6. NAEL, VASOMOTOR NEPHROPATHY, acute 7. HYPERGLYCEMIA 8. sepsis 9. LEUKOCYTOSIS 10. SEVERE PROTEIN-CALORIC MALNUTRITION plan admit transfuse, hgb 2300 tonight, BMP AT 2300 TONIGHT CONSULT ONCOLOGY Consult nephrology cvc bed CONSULT GI IV FLUID SUPPORT Serum osmolality urine osmolality dvt prophylaxis iv protonix 40 mg q 24 hrs blood cultures Consult ID emperic iv zosyn, pending ID CONSULT PROCALCITONIN LACTIC ACID WITH REFLEX NORMAL SALINE WITH ONE AMP NAHCO3/LITER AT 125 CC/HR PENDING nephrology consult GUIAC STOOLS need [facility] RECORDS TONNY 76 MIN pt exam, chart review, > 50% of time spent with exam, chart review, pt care coordination Justifications for Admission Other Justification VALDO JOHANSEN MD Nov 12, 2020 15:47 Signed By: VALDO JOHANSEN MD<<Signature on File>> Signed Date/Time:11/12/20 1715 cc: VALDO JOHANSEN MD; JULI GIANG DO; DIMA COLLIER MD ~[id number] Name: MISTY CASTORENA Acct: [id number] : 1950 Visit Date: Current Medications Current Medications Current Medications Piperacillin Sod/ Tazobactam Sod 3.375 gm/Sodium Chloride 50 ml @ 100 mls/hr 1X ONCE IV ; Start 11/12/20 at 14:45; Stop 11/12/20 at 15:14; Status UNV Allergies Allergies: Coded Allergies: No Known Drug Allergies (Unverified , 11/12/20) Physical Exam General: Alert, Oriented X3, Cooperative Labs Labs Laboratory Tests Test 11/12/20 12:00 11/12/20 12:50 11/12/20 14:05 11/12/20 15:12 White Blood Count 28.5 x10^3/uL (4.0-11.0) Red Blood Count 2.69 x10^6/uL (4.30-5.70) Hemoglobin 6.2 g/dL (13.0-17.5) Hematocrit 20.3 % (39.0-53.0) Mean Corpuscular Volume 76 fL (79-100) Mean Corpuscular Hemoglobin 23 pg (25-35) Mean Corpuscular Hemoglobin Concent 31 g/dL (31-37) Red Cell Distribution Width 20.4 % (11.5-14.5) Platelet Count 451 x10^3/uL (140-400) Neutrophils (%) (Auto) 93 % (31-73) Lymphocytes (%) (Auto) 2 % (24-48) Monocytes (%) (Auto) 6 % (0-9) Eosinophils (%) (Auto) 0 % (0-3) Basophils (%) (Auto) 0 % (0-3) Neutrophils # (Auto) 26.4 x10^3/uL (1.8-7.7) Lymphocytes # (Auto) 0.5 x10^3/uL (1.0-4.8) Monocytes # (Auto) 1.6 x10^3/uL (0.0-1.1) Eosinophils # (Auto) 0.0 x10^3/uL (0.0-0.7) Basophils # (Auto) 0.1 x10^3/uL (0.0-0.2) Segmented Neutrophils % 78 % (35-66) Band Neutrophils % 14 % (0-9) Lymphocytes % 2 % (24-48) Monocytes % 6 % (0-10) Platelet Estimate Increased (ADEQUATE) Hypochromasia Mod Poikilocytosis Slight Anisocytosis Mod Microcytosis Slight Ovalocytes Present Schistocytes Occ Sodium Level 123 mmol/L (136-145) Potassium Level 3.6 mmol/L (3.5-5.1) Chloride Level 90 mmol/L (98-107) Carbon Dioxide Level 14 mmol/L (21-32) Anion Gap 19 (6-14) Blood Urea Nitrogen 58 mg/dL (8-26) Creatinine 1.5 mg/dL (0.7-1.3) Estimated GFR (Cockcroft-Gault) 46.1 BUN/Creatinine Ratio 39 (6-20) Glucose Level 160 mg/dL (70-99) Calcium Level 8.1 mg/dL (8.5-10.1) Total Bilirubin 0.3 mg/dL (0.2-1.0) Aspartate Amino Transf (AST/SGOT) 39 U/L (15-37) Alanine Aminotransferase (ALT/SGPT) 25 U/L (16-63) Alkaline Phosphatase 137 U/L (46-116) Total Protein 7.0 g/dL (6.4-8.2) Albumin 2.1 g/dL (3.4-5.0) Albumin/Globulin Ratio 0.4 (1.0-1.7) Thyroid Stimulating Hormone (TSH) 2.231 uIU/mL (0.358-3.74) Free Thyroxine 1.27 ng/dL (0.76-1.46) SARS-CoV-2 Antigen (Rapid) Negative (NEGATIVE) Urine Collection Type Unknown Urine Color Yellow Urine Clarity Hazy Urine pH 6.0 (<5.0-8.0) Urine Specific Treadwell 1.020 (1.000-1.030) Urine Protein 30 mg/dL (NEG-TRACE) Urine Glucose (UA) Negative mg/dL (NEG) Urine Ketones (Stick) Trace mg/dL (NEG) Urine Blood Negative (NEG) Urine Nitrite Negative (NEG) Urine Bilirubin Negative (NEG) Urine Urobilinogen Dipstick 0.2 mg/dL (0.2 mg/dL) Urine Leukocyte Esterase Negative (NEG) Urine RBC 0 /HPF (0-2) Urine WBC Occ /HPF (0-4) Urine Bacteria 0 /HPF (0-FEW) Urine Hyaline Casts Few /HPF Urine Granular Casts Occasional /HPF Urine Mucus Slight /LPF Lactic Acid Level 1.0 mmol/L (0.4-2.0) Laboratory Tests Test 11/12/20 12:00 11/12/20 12:50 11/12/20 14:05 11/12/20 15:12 White Blood Count 28.5 x10^3/uL (4.0-11.0) Red Blood Count 2.69 x10^6/uL (4.30-5.70) Hemoglobin 6.2 g/dL (13.0-17.5) Hematocrit 20.3 % (39.0-53.0) Mean Corpuscular Volume 76 fL (79-100) Mean Corpuscular Hemoglobin 23 pg (25-35) Mean Corpuscular Hemoglobin Concent 31 g/dL (31-37) Red Cell Distribution Width 20.4 % (11.5-14.5) Platelet Count 451 x10^3/uL (140-400) Neutrophils (%) (Auto) 93 % (31-73) Lymphocytes (%) (Auto) 2 % (24-48) Monocytes (%) (Auto) 6 % (0-9) Eosinophils (%) (Auto) 0 % (0-3) Basophils (%) (Auto) 0 % (0-3) Neutrophils # (Auto) 26.4 x10^3/uL (1.8-7.7) Lymphocytes # (Auto) 0.5 x10^3/uL (1.0-4.8) Monocytes # (Auto) 1.6 x10^3/uL (0.0-1.1) Eosinophils # (Auto) 0.0 x10^3/uL (0.0-0.7) Basophils # (Auto) 0.1 x10^3/uL (0.0-0.2) Segmented Neutrophils % 78 % (35-66) Band Neutrophils % 14 % (0-9) Lymphocytes % 2 % (24-48) Monocytes % 6 % (0-10) Platelet Estimate Increased (ADEQUATE) Hypochromasia Mod Poikilocytosis Slight Anisocytosis Mod Microcytosis Slight Ovalocytes Present Schistocytes Occ Sodium Level 123 mmol/L (136-145) Potassium Level 3.6 mmol/L (3.5-5.1) Chloride Level 90 mmol/L (98-107) Carbon Dioxide Level 14 mmol/L (21-32) Anion Gap 19 (6-14) Blood Urea Nitrogen 58 mg/dL (8-26) Creatinine 1.5 mg/dL (0.7-1.3) Estimated GFR (Cockcroft-Gault) 46.1 BUN/Creatinine Ratio 39 (6-20) Glucose Level 160 mg/dL (70-99) Calcium Level 8.1 mg/dL (8.5-10.1) Total Bilirubin 0.3 mg/dL (0.2-1.0) Aspartate Amino Transf (AST/SGOT) 39 U/L (15-37) Alanine Aminotransferase (ALT/SGPT) 25 U/L (16-63) Alkaline Phosphatase 137 U/L (46-116) Total Protein 7.0 g/dL (6.4-8.2) Albumin 2.1 g/dL (3.4-5.0) Albumin/Globulin Ratio 0.4 (1.0-1.7) Thyroid Stimulating Hormone (TSH) 2.231 uIU/mL (0.358-3.74) Free Thyroxine 1.27 ng/dL (0.76-1.46) SARS-CoV-2 Antigen (Rapid) Negative (NEGATIVE) Urine Collection Type Unknown Urine Color Yellow Urine Clarity Hazy Urine pH 6.0 (<5.0-8.0) Urine Specific Treadwell 1.020 (1.000-1.030) Urine Protein 30 mg/dL (NEG-TRACE) Urine Glucose (UA) Negative mg/dL (NEG) Urine Ketones (Stick) Trace mg/dL (NEG) Urine Blood Negative (NEG) Urine Nitrite Negative (NEG) Urine Bilirubin Negative (NEG) Urine Urobilinogen Dipstick 0.2 mg/dL (0.2 mg/dL) Urine Leukocyte Esterase Negative (NEG) Urine RBC 0 /HPF (0-2) Urine WBC Occ /HPF (0-4) Urine Bacteria 0 /HPF (0-FEW) Urine Hyaline Casts Few /HPF Urine Granular Casts Occasional /HPF Urine Mucus Slight /LPF Lactic Acid Level 1.0 mmol/L (0.4-2.0) VTE Prophylaxis Ordered VTE Prophylaxis Devices: Yes VTE Pharmacological Prophylaxi: Yes Justifications for Admission Other Justification VALDO JOHANSEN MD Nov 12, 2020 20:39
== END ==
LOC: ONCLAB 11:53
PROVIDERS: ATTEND Physician Assistant
DX: Z01.812 Encounter for preprocedural laboratory examination (principal); C22.1 Intrahepatic bile duct carcinoma; D37.6 Neoplasm of uncertain behavior of liver, gallbladder and bile ducts; E03.9 Hypothyroidism, unspecified; R50.9 Fever, unspecified; Z20.828 Contact with and (suspected) exposure to other viral communicable diseases
CPT/HCPCS: 36415; 80053; 81001; 83605; 84439; 84443; 85007; 85025; 87040; 87205; 87426; U0003

== ENCOUNTER → 2020-11-20 | Outpatient (CLI) | payer OTHER, MEDICARE ==
[2020-11-16 15:00] VITALS: BP 98/55
[~2020-11-20] MED LIST changes: +ACET325T9 PO; +LINE600T12 PO; -PIPERACILLIN/TAZOBACTAM 3.375 GM in IV NORMAL SALINE 50ML 50 ML IV ONE
[2020-11-20 10:36] LABS: CALCIUM 7.9 mg/dL (8.5-10.1); CREATININE 0.8 mg/dL (0.7-1.3); GFR 95.3; POTASSIUM 3.4 mmol/L (3.5-5.1)
[2020-11-20 10:42] LABS: ALBUMIN 2.1 g/dL (3.4-5.0); ALBUMIN/GLOBULIN RATIO 0.5 (1.0-1.7); TOTAL BILIRUBIN 0.2 mg/dL (0.2-1.0); TOTAL PROTEIN 6.2 g/dL (6.4-8.2)
[2020-11-20 10:52] LABS: BASO # 0.1 x10^3/uL (0.0-0.2); BASO % 2 % (0-3); EOS # 0.1 x10^3/uL (0.0-0.7); EOS % 2 % (0-3); HEMATOCRIT 22.9 % (39.0-53.0); HEMOGLOBIN 7.1 g/dL (13.0-17.5); LYMPH # 0.9 x10^3/uL (1.0-4.8); LYMPH % 16 % (24-48); MEAN CORPUSCULAR HEMOGLOBIN 25 pg (25-35); MEAN CORPUSCULAR HGB CONC 31 g/dL (31-37); MEAN CORPUSCULAR VOLUME 81 fL (79-100); MONO # 0.5 x10^3/uL (0.0-1.1); MONO % 9 % (0-9); NEUT % 71 % (31-73); PLATELET COUNT 374 x10^3/uL (140-400); RED BLOOD COUNT 2.82 x10^6/uL (4.30-5.70); RED CELL DISTRIBUTION WIDTH 19.5 % (11.5-14.5); WHITE BLOOD COUNT 5.6 x10^3/uL (4.0-11.0)
== END ==
LOC: ONCLAB 10:07
PROVIDERS: ATTEND Internal Medicine Hematology & Oncology
DX: C22.1 Intrahepatic bile duct carcinoma (principal); D37.6 Neoplasm of uncertain behavior of liver, gallbladder and bile ducts
CPT/HCPCS: 36415; 80053; 82728; 83540; 83550; 85025

== ENCOUNTER → 2020-11-26 | Outpatient (CLI) | payer OTHER, MEDICARE ==
[2020-11-16 15:00] VITALS: BP 98/55
[2020-11-26 11:09] LABS: BASO # 0.1 x10^3/uL (0.0-0.2); BASO % 3 % (0-3); EOS # 0.1 x10^3/uL (0.0-0.7); EOS % 3 % (0-3); HEMATOCRIT 21.1 % (39.0-53.0); LYMPH # 0.8 x10^3/uL (1.0-4.8); LYMPH % 18 % (24-48); MEAN CORPUSCULAR HEMOGLOBIN 26 pg (25-35); MEAN CORPUSCULAR HGB CONC 32 g/dL (31-37); MEAN CORPUSCULAR VOLUME 80 fL (79-100); MONO # 0.4 x10^3/uL (0.0-1.1); MONO % 9 % (0-9); NEUT % 67 % (31-73); PLATELET COUNT 292 x10^3/uL (140-400); RED BLOOD COUNT 2.62 x10^6/uL (4.30-5.70); RED CELL DISTRIBUTION WIDTH 19.3 % (11.5-14.5); WHITE BLOOD COUNT 4.4 x10^3/uL (4.0-11.0)
[2020-11-26 11:16] LABS: CALCIUM 7.6 mg/dL (8.5-10.1); CREATININE 0.8 mg/dL (0.7-1.3); GFR 95.3; POTASSIUM 3.8 mmol/L (3.5-5.1)
[2020-11-26 11:20] LABS: HEMOGLOBIN 6.7 g/dL (13.0-17.5)
[2020-11-26 11:22] LABS: ALBUMIN 2.1 g/dL (3.4-5.0); ALBUMIN/GLOBULIN RATIO 0.5 (1.0-1.7); TOTAL BILIRUBIN 0.2 mg/dL (0.2-1.0)
== END ==
LOC: ONCLAB 10:32
PROVIDERS: ATTEND Physician Assistant
DX: D37.6 Neoplasm of uncertain behavior of liver, gallbladder and bile ducts (principal); D64.89 Other specified anemias
CPT/HCPCS: 36415; 80053; 82607; 82746; 85025

== ENCOUNTER → 2020-11-27 | Outpatient (CLI) | payer OTHER, MEDICARE ==
[2020-11-26 15:40] VITALS: BP 106/61
[2020-11-27 09:29] LABS: CALCIUM 8.5 mg/dL (8.5-10.1); CREATININE 0.8 mg/dL (0.7-1.3); GFR 95.3; POTASSIUM 4.1 mmol/L (3.5-5.1)
== END ==
LOC: ONCLAB 09:06
PROVIDERS: ATTEND Physician Assistant
DX: C22.1 Intrahepatic bile duct carcinoma (principal); D37.6 Neoplasm of uncertain behavior of liver, gallbladder and bile ducts; D64.89 Other specified anemias; D50.8 Other iron deficiency anemias
CPT/HCPCS: 36415; 80048

== ENCOUNTER → 2020-12-02 | Outpatient (CLI) | payer OTHER, MEDICARE ==
[2020-11-27 13:49] VITALS: BP 104/60
[~2020-12-02] MED LIST changes: +ENOX40DI3 SQ; +POTA20TA4 PO
[2020-12-02 10:26] LABS: BASO % 1 % (0-3); EOS # 0.1 x10^3/uL (0.0-0.7); EOS % 1 % (0-3); HEMATOCRIT 23.1 % (39.0-53.0); HEMOGLOBIN 7.4 g/dL (13.0-17.5); LYMPH # 0.7 x10^3/uL (1.0-4.8); LYMPH % 12 % (24-48); MEAN CORPUSCULAR HEMOGLOBIN 26 pg (25-35); MEAN CORPUSCULAR HGB CONC 32 g/dL (31-37); MEAN CORPUSCULAR VOLUME 81 fL (79-100); MONO # 1.1 x10^3/uL (0.0-1.1); MONO % 19 % (0-9); NEUT # 4.2 x10^3/uL (1.8-7.7); NEUT % 68 % (31-73); PLATELET COUNT 176 x10^3/uL (140-400); RED BLOOD COUNT 2.87 x10^6/uL (4.30-5.70); RED CELL DISTRIBUTION WIDTH 18.6 % (11.5-14.5); WHITE BLOOD COUNT 6.1 x10^3/uL (4.0-11.0)
[2020-12-02 10:38] LABS: CALCIUM 8.2 mg/dL (8.5-10.1); CREATININE 0.6 mg/dL (0.7-1.3); GFR 132.8; POTASSIUM 3.7 mmol/L (3.5-5.1)
[2020-12-02 10:43] LABS: ALBUMIN 2.1 g/dL (3.4-5.0); ALBUMIN/GLOBULIN RATIO 0.5 (1.0-1.7); TOTAL BILIRUBIN 0.2 mg/dL (0.2-1.0); TOTAL PROTEIN 6.2 g/dL (6.4-8.2)
[2020-12-02 11:29] LABS: % BANDS 7 % (0-9); % LYMPHS 11 % (24-48); % MONOS 10 % (0-10); % SEGS 72 % (35-66); PLT ESTIMATE ADEQUATE (ADEQUATE)
[2020-12-02 11:30] LABS: ANISOCYTOSIS PRESENT
[2020-12-09 10:13] LABS: METHYLMALONIC ACID 162 nmol/L (0-378)
== END ==
LOC: ONCLAB 09:50
PROVIDERS: ATTEND Internal Medicine Hematology & Oncology
DX: C22.1 Intrahepatic bile duct carcinoma (principal); D64.89 Other specified anemias
CPT/HCPCS: 36415; 80053; 83010; 83615; 83921; 84443; 85007; 85025; 85045

== ENCOUNTER → 2020-12-11 | Outpatient (CLI) | payer OTHER, MEDICARE ==
[2020-12-02 15:03] VITALS: BP 93/50
[~2020-12-11] MED LIST changes: -ENOX40DI3 SQ; -POTA20TA4 PO
[2020-12-11 10:32] LABS: BASO # 0.1 x10^3/uL (0.0-0.2); BASO % 1 % (0-3); EOS # 0.1 x10^3/uL (0.0-0.7); EOS % 1 % (0-3); HEMATOCRIT 30.5 % (39.0-53.0); HEMOGLOBIN 9.8 g/dL (13.0-17.5); LYMPH # 0.9 x10^3/uL (1.0-4.8); LYMPH % 8 % (24-48); MEAN CORPUSCULAR HEMOGLOBIN 27 pg (25-35); MEAN CORPUSCULAR HGB CONC 32 g/dL (31-37); MEAN CORPUSCULAR VOLUME 84 fL (79-100); MONO # 1.3 x10^3/uL (0.0-1.1); MONO % 12 % (0-9); NEUT % 78 % (31-73); PLATELET COUNT 477 x10^3/uL (140-400); RED BLOOD COUNT 3.65 x10^6/uL (4.30-5.70); RED CELL DISTRIBUTION WIDTH 20.8 % (11.5-14.5); WHITE BLOOD COUNT 10.3 x10^3/uL (4.0-11.0)
[2020-12-11 10:45] LABS: CALCIUM 8.2 mg/dL (8.5-10.1); CREATININE 0.7 mg/dL (0.7-1.3); GFR 111.2; POTASSIUM 3.1 mmol/L (3.5-5.1)
[2020-12-11 10:50] LABS: FECAL OB PT POSITIVE (NEG)
[2020-12-11 10:51] LABS: FECAL OB PT NEGATIVE (NEG)
[2020-12-11 10:51] LABS: FECAL OB PT NEGATIVE (NEG)
[2020-12-11 11:03] LABS: ALBUMIN 1.9 g/dL (3.4-5.0); ALBUMIN/GLOBULIN RATIO 0.4 (1.0-1.7); TOTAL BILIRUBIN 0.2 mg/dL (0.2-1.0); TOTAL PROTEIN 6.5 g/dL (6.4-8.2)
== END ==
LOC: ONCLAB 09:49
PROVIDERS: ATTEND Internal Medicine Hematology & Oncology
DX: D64.89 Other specified anemias (principal); C22.1 Intrahepatic bile duct carcinoma; D37.6 Neoplasm of uncertain behavior of liver, gallbladder and bile ducts
CPT/HCPCS: 36415; 80053; 82274; 82728; 83540; 83550; 84443; 85025

== ENCOUNTER → 2020-12-18 | Outpatient (CLI) | payer OTHER, MEDICARE ==
[2020-12-02 15:03] VITALS: BP 93/50
[2020-12-18 11:02] LABS: BASO # 0.1 x10^3/uL (0.0-0.2); BASO % 1 % (0-3); EOS % 0 % (0-3); HEMATOCRIT 23.7 % (39.0-53.0); HEMOGLOBIN 7.6 g/dL (13.0-17.5); LYMPH # 0.6 x10^3/uL (1.0-4.8); LYMPH % 6 % (24-48); MEAN CORPUSCULAR HEMOGLOBIN 27 pg (25-35); MEAN CORPUSCULAR HGB CONC 32 g/dL (31-37); MEAN CORPUSCULAR VOLUME 83 fL (79-100); MONO # 1.4 x10^3/uL (0.0-1.1); MONO % 13 % (0-9); NEUT # 8.6 x10^3/uL (1.8-7.7); NEUT % 81 % (31-73); PLATELET COUNT 398 x10^3/uL (140-400); RED BLOOD COUNT 2.86 x10^6/uL (4.30-5.70); RED CELL DISTRIBUTION WIDTH 20.4 % (11.5-14.5); WHITE BLOOD COUNT 10.7 x10^3/uL (4.0-11.0)
[2020-12-18 11:11] LABS: CALCIUM 7.5 mg/dL (8.5-10.1); CREATININE 0.8 mg/dL (0.7-1.3); GFR 95.3; POTASSIUM 3.7 mmol/L (3.5-5.1)
[2020-12-18 11:17] LABS: ALBUMIN 1.6 g/dL (3.4-5.0); ALBUMIN/GLOBULIN RATIO 0.3 (1.0-1.7); TOTAL BILIRUBIN 0.2 mg/dL (0.2-1.0); TOTAL PROTEIN 6.3 g/dL (6.4-8.2)
[2020-12-18 12:26] LABS: ANISOCYTOSIS SLIGHT; PLT ESTIMATE ADEQUATE (ADEQUATE)
== END ==
LOC: ONCLAB 10:41
PROVIDERS: ATTEND Internal Medicine Hematology & Oncology
DX: D37.6 Neoplasm of uncertain behavior of liver, gallbladder and bile ducts (principal)
CPT/HCPCS: 36415; 80053; 85025

== ENCOUNTER → 2021-01-01 | Outpatient (CLI) | payer OTHER, MEDICARE ==
[2020-12-02 15:03] VITALS: BP 93/50
[2021-01-01 10:44] LABS: BASO # 0.1 x10^3/uL (0.0-0.2); BASO % 1 % (0-3); EOS # 0.2 x10^3/uL (0.0-0.7); EOS % 2 % (0-3); HEMATOCRIT 22.4 % (39.0-53.0); LYMPH # 0.8 x10^3/uL (1.0-4.8); LYMPH % 11 % (24-48); MEAN CORPUSCULAR HEMOGLOBIN 30 pg (25-35); MEAN CORPUSCULAR HGB CONC 31 g/dL (31-37); MEAN CORPUSCULAR VOLUME 97 fL (79-100); MONO # 0.8 x10^3/uL (0.0-1.1); MONO % 10 % (0-9); NEUT # 5.8 x10^3/uL (1.8-7.7); NEUT % 76 % (31-73); PLATELET COUNT 371 x10^3/uL (140-400); RED BLOOD COUNT 2.32 x10^6/uL (4.30-5.70); RED CELL DISTRIBUTION WIDTH 29.6 % (11.5-14.5); WHITE BLOOD COUNT 7.6 x10^3/uL (4.0-11.0)
[2021-01-01 11:15] LABS: ALBUMIN 1.5 g/dL (3.4-5.0); ALBUMIN/GLOBULIN RATIO 0.4 (1.0-1.7); CALCIUM 7.2 mg/dL (8.5-10.1); CREATININE 0.7 mg/dL (0.7-1.3); GFR 111.2; TOTAL BILIRUBIN 0.1 mg/dL (0.2-1.0); TOTAL PROTEIN 5.7 g/dL (6.4-8.2)
[2021-01-01 11:17] LABS: POTASSIUM 2.9 mmol/L (3.5-5.1)
[2021-01-01 11:21] LABS: ANISOCYTOSIS MOD; HYPOCHROMIA MOD; MICROCYTOSIS MOD; PLT ESTIMATE ADEQUATE (ADEQUATE); POIKILOCYTOSIS MOD
[2021-01-01 11:23] LABS: OVALOCYTES OCC; SCHISTOCYTES OCC
== END ==
LOC: ONCLAB 09:07
PROVIDERS: ATTEND Internal Medicine Hematology & Oncology
DX: C22.1 Intrahepatic bile duct carcinoma (principal); E03.2 Hypothyroidism due to medicaments and other exogenous substances; D50.8 Other iron deficiency anemias
CPT/HCPCS: 36415; 80053; 82728; 83540; 83550; 84443; 85025

== ENCOUNTER → 2021-01-22 | Outpatient (CLI) | payer OTHER, MEDICARE ==
[2020-12-02 15:03] VITALS: BP 93/50
[2021-01-22 11:04] LABS: BASO # 0.1 x10^3/uL (0.0-0.2); BASO % 1 % (0-3); EOS # 0.2 x10^3/uL (0.0-0.7); EOS % 3 % (0-3); HEMATOCRIT 30.3 % (39.0-53.0); HEMOGLOBIN 9.8 g/dL (13.0-17.5); LYMPH # 0.8 x10^3/uL (1.0-4.8); LYMPH % 14 % (24-48); MEAN CORPUSCULAR HEMOGLOBIN 31 pg (25-35); MEAN CORPUSCULAR HGB CONC 32 g/dL (31-37); MEAN CORPUSCULAR VOLUME 96 fL (79-100); MONO # 0.6 x10^3/uL (0.0-1.1); MONO % 10 % (0-9); NEUT # 4.3 x10^3/uL (1.8-7.7); NEUT % 72 % (31-73); PLATELET COUNT 355 x10^3/uL (140-400); RED BLOOD COUNT 3.15 x10^6/uL (4.30-5.70); RED CELL DISTRIBUTION WIDTH 20.9 % (11.5-14.5)
[2021-01-22 11:22] LABS: CALCIUM 7.6 mg/dL (8.5-10.1); CREATININE 0.6 mg/dL (0.7-1.3); GFR 132.8; POTASSIUM 3.7 mmol/L (3.5-5.1)
[2021-01-22 11:43] LABS: ALBUMIN 1.5 g/dL (3.4-5.0); ALBUMIN/GLOBULIN RATIO 0.3 (1.0-1.7); TOTAL BILIRUBIN 0.1 mg/dL (0.2-1.0); TOTAL PROTEIN 6.2 g/dL (6.4-8.2)
== END ==
LOC: ONCLAB 10:20
PROVIDERS: ATTEND Internal Medicine Hematology & Oncology
DX: D37.6 Neoplasm of uncertain behavior of liver, gallbladder and bile ducts (principal)
CPT/HCPCS: 36415; 80053; 82728; 83540; 83550; 85025

== ENCOUNTER → 2021-02-12 | Outpatient (CLI) | payer OTHER, MEDICARE ==
[2021-02-09 10:36] VITALS: BP 118/73
[~2021-02-12] MED LIST changes: +ENOX40DI3 SQ; +POTA20TA4 PO
[2021-02-12 11:07] LABS: BASO # 0.1 x10^3/uL (0.0-0.2); BASO % 1 % (0-3); EOS # 0.2 x10^3/uL (0.0-0.7); EOS % 2 % (0-3); HEMATOCRIT 30.5 % (39.0-53.0); HEMOGLOBIN 9.9 g/dL (13.0-17.5); LYMPH # 0.7 x10^3/uL (1.0-4.8); LYMPH % 9 % (24-48); MEAN CORPUSCULAR HEMOGLOBIN 31 pg (25-35); MEAN CORPUSCULAR HGB CONC 33 g/dL (31-37); MEAN CORPUSCULAR VOLUME 95 fL (79-100); MONO # 1.1 x10^3/uL (0.0-1.1); MONO % 13 % (0-9); NEUT % 75 % (31-73); PLATELET COUNT 400 x10^3/uL (140-400); RED BLOOD COUNT 3.22 x10^6/uL (4.30-5.70); RED CELL DISTRIBUTION WIDTH 17.7 % (11.5-14.5); WHITE BLOOD COUNT 8.1 x10^3/uL (4.0-11.0)
[2021-02-12 11:20] LABS: CALCIUM 7.7 mg/dL (8.5-10.1); CREATININE 0.6 mg/dL (0.7-1.3); GFR 132.8; POTASSIUM 3.5 mmol/L (3.5-5.1)
[2021-02-12 11:59] LABS: ALBUMIN 1.8 g/dL (3.4-5.0); ALBUMIN/GLOBULIN RATIO 0.4 (1.0-1.7); TOTAL BILIRUBIN 0.1 mg/dL (0.2-1.0); TOTAL PROTEIN 6.9 g/dL (6.4-8.2)
== END ==
LOC: ONCLAB 09:17
PROVIDERS: ATTEND Internal Medicine Hematology & Oncology
DX: D37.6 Neoplasm of uncertain behavior of liver, gallbladder and bile ducts (principal); E87.1 Hypo-osmolality and hyponatremia; K90.89 Other intestinal malabsorption
CPT/HCPCS: 36415; 80053; 82728; 83540; 83550; 84443; 85025

== ENCOUNTER → 2021-03-05 | Outpatient (CLI) | payer OTHER, MEDICARE ==
[2021-02-09 10:36] VITALS: BP 118/73
[2021-03-05 09:33] LABS: BASO # 0.1 x10^3/uL (0.0-0.2); BASO % 1 % (0-3); EOS # 0.2 x10^3/uL (0.0-0.7); EOS % 3 % (0-3); HEMATOCRIT 31.7 % (39.0-53.0); HEMOGLOBIN 10.5 g/dL (13.0-17.5); LYMPH % 18 % (24-48); MEAN CORPUSCULAR HEMOGLOBIN 32 pg (25-35); MEAN CORPUSCULAR HGB CONC 33 g/dL (31-37); MEAN CORPUSCULAR VOLUME 98 fL (79-100); MONO # 0.5 x10^3/uL (0.0-1.1); MONO % 10 % (0-9); NEUT # 3.5 x10^3/uL (1.8-7.7); NEUT % 67 % (31-73); PLATELET COUNT 277 x10^3/uL (140-400); RED BLOOD COUNT 3.23 x10^6/uL (4.30-5.70); RED CELL DISTRIBUTION WIDTH 18.7 % (11.5-14.5); WHITE BLOOD COUNT 5.2 x10^3/uL (4.0-11.0)
[2021-03-05 09:43] LABS: CALCIUM 7.5 mg/dL (8.5-10.1); CREATININE 0.7 mg/dL (0.7-1.3); GFR 111.2; POTASSIUM 3.2 mmol/L (3.5-5.1)
[2021-03-05 09:48] LABS: ALBUMIN 1.9 g/dL (3.4-5.0); ALBUMIN/GLOBULIN RATIO 0.5 (1.0-1.7); TOTAL BILIRUBIN 0.2 mg/dL (0.2-1.0); TOTAL PROTEIN 6.1 g/dL (6.4-8.2)
== END ==
LOC: ONCLAB 09:20
PROVIDERS: ATTEND Internal Medicine Hematology & Oncology
DX: C22.1 Intrahepatic bile duct carcinoma (principal)
CPT/HCPCS: 36415; 80053; 85025

== ENCOUNTER → 2021-03-19 | Outpatient (CLI) | payer OTHER, MEDICARE ==
[2021-02-09 10:36] VITALS: BP 118/73
[2021-03-19 10:26] LABS: BASO # 0.1 x10^3/uL (0.0-0.2); BASO % 1 % (0-3); EOS # 0.4 x10^3/uL (0.0-0.7); EOS % 5 % (0-3); HEMATOCRIT 39.9 % (39.0-53.0); HEMOGLOBIN 13.1 g/dL (13.0-17.5); LYMPH # 1.1 x10^3/uL (1.0-4.8); LYMPH % 14 % (24-48); MEAN CORPUSCULAR HEMOGLOBIN 32 pg (25-35); MEAN CORPUSCULAR HGB CONC 33 g/dL (31-37); MEAN CORPUSCULAR VOLUME 97 fL (79-100); MONO % 12 % (0-9); NEUT # 5.5 x10^3/uL (1.8-7.7); NEUT % 68 % (31-73); PLATELET COUNT 370 x10^3/uL (140-400); RED BLOOD COUNT 4.13 x10^6/uL (4.30-5.70); RED CELL DISTRIBUTION WIDTH 17.3 % (11.5-14.5)
[2021-03-19 10:35] LABS: CALCIUM 8.3 mg/dL (8.5-10.1); CREATININE 0.9 mg/dL (0.7-1.3); GFR 83.2; POTASSIUM 4.2 mmol/L (3.5-5.1)
[2021-03-19 10:40] LABS: ALBUMIN/GLOBULIN RATIO 0.6 (1.0-1.7); TOTAL BILIRUBIN 0.4 mg/dL (0.2-1.0)
== END ==
LOC: ONCLAB 09:38
PROVIDERS: ATTEND Internal Medicine Hematology & Oncology
DX: D37.6 Neoplasm of uncertain behavior of liver, gallbladder and bile ducts (principal); E03.2 Hypothyroidism due to medicaments and other exogenous substances
CPT/HCPCS: 36415; 80053; 84443; 85025

== ENCOUNTER → 2021-04-12 | Outpatient (CLI) | payer MEDICARE, OTHER ==
[2021-02-09 10:36] VITALS: BP 118/73
[2021-04-12 11:42] LABS: BASO # 0.1 x10^3/uL (0.0-0.2); BASO % 1 % (0-3); EOS # 0.4 x10^3/uL (0.0-0.7); EOS % 5 % (0-3); HEMATOCRIT 33.7 % (39.0-53.0); HEMOGLOBIN 11.2 g/dL (13.0-17.5); LYMPH % 13 % (24-48); MEAN CORPUSCULAR HEMOGLOBIN 31 pg (25-35); MEAN CORPUSCULAR HGB CONC 33 g/dL (31-37); MEAN CORPUSCULAR VOLUME 94 fL (79-100); MONO # 0.9 x10^3/uL (0.0-1.1); MONO % 12 % (0-9); NEUT # 5.2 x10^3/uL (1.8-7.7); NEUT % 69 % (31-73); PLATELET COUNT 383 x10^3/uL (140-400); RED CELL DISTRIBUTION WIDTH 15.6 % (11.5-14.5); WHITE BLOOD COUNT 7.5 x10^3/uL (4.0-11.0)
[2021-04-12 11:50] LABS: CALCIUM 8.7 mg/dL (8.5-10.1); CREATININE 0.8 mg/dL (0.7-1.3); GFR 95.3; POTASSIUM 3.9 mmol/L (3.5-5.1)
[2021-04-12 11:58] LABS: ALBUMIN 2.5 g/dL (3.4-5.0); ALBUMIN/GLOBULIN RATIO 0.5 (1.0-1.7); TOTAL BILIRUBIN 0.2 mg/dL (0.2-1.0); TOTAL PROTEIN 7.6 g/dL (6.4-8.2)
== END ==
LOC: ONCLAB 10:21
PROVIDERS: ATTEND Internal Medicine Hematology & Oncology
DX: D37.6 Neoplasm of uncertain behavior of liver, gallbladder and bile ducts (principal); E03.2 Hypothyroidism due to medicaments and other exogenous substances
CPT/HCPCS: 36415; 80053; 85025